=== PATIENT | female | born 1975 | race Caucasian/White ===

== ENCOUNTER → 2017-12-17 09:17 | Outpatient (CLI) | payer OTHER, SELFPAY ==
[2017-12-17 09:32] LABS: Add Manual Diff / Slide Review NO; Basophils Percent Auto 1.3 % (0-2); Eosinophils Percent Auto 13.6 % (2-4); Hematocrit 37.4 % (36-46); Hemoglobin 12.9 g/dL (12.0-16.0); Lymphocytes Percent Auto 36.9 % (25-40); Mean Corpuscular HGB Conc 34.4 % (30-36); Mean Corpuscular Hemoglobin 31.2 PG (26-34); Mean Corpuscular Volume 90.6 fL (80-100); Monocytes Percent Auto 6.9 % (3-14); Neutrophils Absolute Auto 2300 /uL (3000-5900); Neutrophils Percent Auto 41.3 % (50-75); Platelet Count 321 X10^3/uL (150-400); Red Blood Cell Count 4.12 X10^6/uL (4.0-5.2); Red Cell Distribution Width 13.6 % (11.6-14.8); White Blood Cell Count 5.6 X10^3/uL (4.5-11.0)
[2017-12-17 09:48] LABS: Alanine Aminotransferase 25 IU/L (9-52); Albumin Globulin Ratio 1.3 (1.0-2.8); Alkaline Phosphatase 58 U/L (38-126); Aspartate Aminotransferase 18 IU/L (14-36); Bilirubin Total 0.3 mg/dL (0.2-1.3); Blood Urea Nitrogen 14 mg/dL (7-17); Calcium 8.9 mg/dL (8.4-10.2); Carbon Dioxide 24 mmol/L (22-32); Chloride 104 mmol/L (98-107); Estimated Glomerular Filt Rate > 60.0 mL/min (>60); Globulin 3.2 g/dL (1.7-4.1); Glucose 91 mg/dL (70-100); HEMOLYSIS 15 (0-50); Potassium 4.3 mmol/L (3.4-5.1); Sodium 138 mmol/L (137-145); Total Protein 7.2 g/dL (6.3-8.2)
[2017-12-17 09:49] LABS: D Dimer 1662 ng/mL (<230)
== END ==
PROVIDERS: Family Provider Family Medicine; PCP Family Medicine; Visit Provider Nurse Practitioner Gerontology
DX: D68.59 Other primary thrombophilia (principal); Z86.11 Personal history of tuberculosis
CPT/HCPCS: 36415; 80053; 85025; 85379

== ENCOUNTER → 2018-06-13 10:28 | Outpatient (CLI) | payer OTHER, SELFPAY ==
--- NOTE | 2018-06-12 14:56 | ONC.SCHED ---
left voice mail for Ester Vila @ [facility] to fax new auth for this patient's [facility]
[2018-06-13 10:52] LABS: Add Manual Diff / Slide Review NO; Basophils Percent Auto 1.1 % (0-2); Eosinophils Percent Auto 9.6 % (2-4); Hematocrit 35.7 % (36-46); Hemoglobin 11.9 g/dL (12.0-16.0); Lymphocytes Percent Auto 34.7 % (25-40); Mean Corpuscular HGB Conc 33.4 % (30-36); Mean Corpuscular Hemoglobin 28.8 PG (26-34); Mean Corpuscular Volume 86.3 fL (80-100); Monocytes Percent Auto 7.2 % (3-14); Neutrophils Absolute Auto 2700 /uL (3000-5900); Neutrophils Percent Auto 47.4 % (50-75); Platelet Count 339 X10^3/uL (150-400); Red Blood Cell Count 4.14 X10^6/uL (4.0-5.2); Red Cell Distribution Width 16.8 % (11.6-14.8); White Blood Cell Count 5.6 X10^3/uL (4.5-11.0)
--- NOTE | 2018-06-13 16:13 | PC.NURSE ---
stable labs noted, provider visit on 06/17
== END ==
PROVIDERS: Family Provider Family Medicine; PCP Family Medicine; Visit Provider Nurse Practitioner Gerontology
DX: D68.69 Other thrombophilia (principal)
CPT/HCPCS: 36415; 85025

== ENCOUNTER 2020-04-25 13:17 | Emergency (ER) | payer OTHER, SELFPAY ==
[2020-04-25] VITALS (8 sets, daily range): BP systolic 147–175; BP diastolic 74–87; PULSE 64–72; RESP 15–23; TEMP 36.9; O2SAT 97–100; BMI 23.6
--- NOTE | 2020-04-25 13:46 | DI.RAD.S_ITS ---
PROCEDURE: XR CHEST 1V INDICATIONS: shortness of breath TECHNIQUE: One view of the chest was acquired. COMPARISON: [facility], , CHEST 1 VIEW, 08/23/2017, 9:29. FINDINGS: Surgical changes and devices: None. Lungs and pleura: Lungs are clear. No pleural effusions or pneumothorax. Mediastinum: Mediastinal contours appear normal. Heart size is normal. Bones and chest wall: No suspicious bony lesions. Overlying soft tissues appear unremarkable. IMPRESSION: 1. No acute cardiopulmonary disease. Dictated by: Vinicio Black M.D. on 04/25/2020 at 14:09 Approved by: Vinicio Black M.D. on 04/25/2020 at 14:09
[2020-04-25 14:09] LABS: Add Manual Diff / Slide Review NO; Basophils Absolute Auto 100 /uL (0-100); Basophils Percent Auto 1.2 % (0-2); Eosinophils Absolute Auto 200 /uL (0-450); Eosinophils Percent Auto 3.5 % (2-4); Hematocrit 36.8 % (36-46); Hemoglobin 12.2 g/dL (12.0-16.0); Lymphocytes Absolute Auto 2100 /uL (1100-4500); Lymphocytes Percent Auto 35.8 % (25-40); Mean Corpuscular HGB Conc 33.1 % (30-36); Mean Corpuscular Hemoglobin 29.4 PG (26-34); Mean Corpuscular Volume 88.9 fL (80-100); Monocytes Absolute Auto 500 /uL (0-900); Monocytes Percent Auto 7.8 % (3-14); Neutrophils Absolute Auto 3000 /uL (1500-7000); Neutrophils Percent Auto 51.7 % (50-75); Platelet Count 327 X10^3/uL (150-400); Red Blood Cell Count 4.14 X10^6/uL (4.0-5.2); Red Cell Distribution Width 14.6 % (11.6-14.8); White Blood Cell Count 5.8 X10^3/uL (4.5-11.0)
--- NOTE | 2020-04-25 14:14 | ED_ITS ---
HPI - SOB/Dyspnea General Chief Complaint: Shortness of Breath/Dyspnea Stated Complaint: thinks she has a PE Time Seen by Provider: 04/25/20 13:54 Source: patient Mode of arrival: Family Vehicle Limitations: no limitations History of Present Illness HPI Narrative: This is a 44-year-old female comes emergency department with concern for PE. Patient has history of pulmonary emboli about 8 years prior. 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 She does stop taking her Xarelto during her menses as she has very severe bleeding and then restart that as soon as her menses resolved. She stopped about a week and half and has since restarted. Patient states her prior symptoms were shortness of breath with dry cough and she noted that she had shortness of breath going up stairs. She states since then she has been a little bit of a hypochondriac states every time she has a cold she gets short of breath and is concerned about another pulmonary emboli. Patient has not had any fever she has had palpitation she had some chest pain at nighttime during palpitations the last 3 nights. Patient noted that her blood pressure was high which was last time as well. Patient has not any think she has had a mild headache the last 2 weeks, dry cough that is been nonproductive. She also noted again that she has short of breath going stairs and having to stop and catch her breath. Related Data Previous Rx's Medication Instructions Recorded rivaroxaban [Xarelto] 10 mg PO DAILY #90 tab 12/20/17 lisinopril 5 mg tablet 5 mg PO QDAY #90 tab 02/20/20 Allergies Allergy/AdvReac Type Severity Reaction Status Date / Time No Known Drug Allergies Allergy Verified 03/08/20 10:06 Review of Systems Review of Systems ROS Unobtainable: All systems reviewed & are unremarkable except as noted in HPI and below Patient History Medical History History of fibula fracture (Resolved ~2014) Protein S deficiency (Chronic) Pulmonary embolism (Chronic ~2011) Vaginal delivery (Resolved) Family History Brother Pulmonary embolism Family/Other Pulmonary embolism Father Colon polyps Mother Hypertension Thyroid disease Social History Smoking Status: Never smoker Smoking Status: Never smoker alcohol intake frequency: holidays/special occasions only Substance Use Type: does not use Exam Narrative Exam Narrative: GENERAL: Alert and oriented x three, well-nourished female in mild distress. HEENT: Head normocephalic, atraumatic, EOMI, pupils reactive, face symmetric, moist mucous membranes NECK: Supple, full range of motion CARDIOVASCULAR: Regular rate and rhythm without murmurs, rubs or gallops. RESPIRATORY: Breath sounds equal bilaterally, no wheezes rales or rhonchi. No tachypnea, no accessory muscle use. ABDOMEN: Soft, nontender. Normoactive bowel sounds all 4 quadrants. No guarding or rebound, rigidity, no mass : No CVA tenderness EXTREMITIES: Normal range of motion, no clubbing or edema. Calf are equal in circumference. No erythema or swelling noted. Neurovascularly intact NEUROLOGICAL: Cranial nerves II through XII grossly intact. Moving all extremities SKIN: Warm, dry, no petechiae, no rashes or lesions. Initial Vital Signs Initial Vital Signs: Vital Signs Temperature 98.4 F 04/25/20 13:30 Pulse Rate 66 04/25/20 13:30 Respiratory Rate 22 04/25/20 13:30 Blood Pressure 175/87 H 04/25/20 13:30 Pulse Oximetry 100 04/25/20 13:30 Scores PERC Score Age greater than or equal to 50 years: No Heart rate greater than or equal to 100 bpm: No Room Air O2 Sat less than 95%: No Unilateral leg swelling: No Recent trauma or surgery: No Hemoptysis: No Prior PE or DVT: Yes Hormone Use: No Total PERC Score: 1 Wells' Criteria for PE Clinical signs and symptoms of DVT: Yes PE is #1 Dx or equally likely: Yes Heart rate > 100: No Immobilization at least 3 days or surg in previous 4 weeks: No History of PE or DVT: Yes Hemoptysis: No Malignancy w/Treatment within 6 months or palliative: No Wells' PE Score total: 7.5 Course Orders Ordered: ED Orders 04/25/20 13:46 XR chest 1V Stat EKG-12 Lead Stat Measure peak expiratory flow ONCE RT Consult Eval and Treat Now 04/25/20 13:58 Complete Blood Count AUTO DIFF Stat Comprehensive Metabolic Panel Stat D Dimer Stat Lactate (Lactic Acid) Stat Partial Thromboplastin Time Stat Prothrombin Time INR Stat Troponin & CK Cardiac Panel Stat 04/25/20 14:25 CT angio chest PE protocol Stat 04/25/20 14:30 COVID19 -ED/INPAT/OR/L&D Stat Reevaluation(s) Reevaluation #1: Patient's labs show an elevated D-dimer but otherwise and troponin are normal. Patient's total creatinine kinase is 162. No EKG changes are noted. This was all discussed with the patient. CT PE does not show a pulmonary embolism at this time and patient is back on her Xarelto. Time: 15:44 Consultations Consultation #1: Spoke with Dr. Loredo who is covering for Dr. Blanchard today. Plan for follow up with office this week. Time: 15:38 Vital Signs Vital signs: Vital Signs - 8 hr 04/25/20 13:30 04/25/20 13:49 04/25/20 14:00 Temperature 98.4 F Pulse Rate 66 70 68 Respiratory Rate 22 20 20 Blood Pressure 175/87 H Pulse Oximetry 100 98 97 04/25/20 14:02 04/25/20 14:49 04/25/20 15:00 Temperature Pulse Rate 65 67 72 Respiratory Rate 20 15 Blood Pressure 159/83 H Pulse Oximetry 98 100 04/25/20 15:30 04/25/20 15:38 Temperature Pulse Rate 64 67 Respiratory Rate 23 18 Blood Pressure 147/74 H Pulse Oximetry 99 98 MDM - SOB/Dyspnea Lab Data Attestation: I reviewed the patient's lab results. Result diagrams: 04/25/20 13:58 04/25/20 13:58 Labs: Lab Results 04/25/20 04/25/20 04/25/20 Range/Units 13:58 13:58 13:58 WBC 5.8 (4.5-11.0) X10^3/uL RBC 4.14 (4.0-5.2) X10^6/uL Hgb 12.2 (12.0-16.0) g/dL Hct 36.8 (36-46) % MCV 88.9 (80-100) fL MCH 29.4 (26-34) PG MCHC 33.1 (30-36) % RDW 14.6 (11.6-14.8) % Plt Count 327 (150-400) X10^3/uL Neut % (Auto) 51.7 (50-75) % Lymph % (Auto) 35.8 (25-40) % [place] % (Auto) 7.8 (3-14) % Eos % (Auto) 3.5 (2-4) % Baso % (Auto) 1.2 (0-2) % Neut # (Auto) 3000 (5197-4728) /uL Lymph # (Auto) 2100 (2177-9880) /uL [place] # (Auto) 500 (0-900) /uL Eos # (Auto) 200 (0-450) /uL Baso # (Auto) 100 (0-100) /uL PT (10.1-12.7) SECONDS INR (0.9-1.3) APTT (26.4-36.2) SECONDS D-Dimer (<230) ng/mL Sodium 138 (137-145) mmol/L Potassium 4.0 (3.4-5.1) mmol/L Chloride 105 (98-107) mmol/L Carbon Dioxide 27 (22-32) mmol/L BUN 16 (7-17) mg/dL Creatinine 0.78 (0.52-1.04) mg/dL Estimated GFR > 60.0 (>60) mL/min BUN/Creatinine Ratio 20.5 (6-22) Glucose 84 (70-100) mg/dL Lactate 0.8 (0.7-2.1) mmol/L Calcium 8.8 (8.4-10.2) mg/dL Total Bilirubin 0.2 (0.2-1.3) mg/dL AST 23 (14-36) IU/L ALT 19 (<35) IU/L Alkaline Phosphatase 59 (38-126) U/L Total Creatine Kinase (30-135) U/L CK-MB (CK-2) (<2.37) ng/mL CK-MB (CK-2) Rel Index (1.5-5.0) % Troponin I (0.01-0.034) ng/mL Total Protein 7.0 (6.3-8.2) g/dL Albumin 3.9 (3.5-5.0) g/dL Globulin 3.1 (1.7-4.1) g/dL Albumin/Globulin Ratio 1.3 (1.0-2.8) COVID-19 PCR (Negative) 04/25/20 04/25/20 04/25/20 Range/Units 13:58 13:58 13:58 WBC (4.5-11.0) X10^3/uL RBC (4.0-5.2) X10^6/uL Hgb (12.0-16.0) g/dL Hct (36-46) % MCV (80-100) fL MCH (26-34) PG MCHC (30-36) % RDW (11.6-14.8) % Plt Count (150-400) X10^3/uL Neut % (Auto) (50-75) % Lymph % (Auto) (25-40) % [place] % (Auto) (3-14) % Eos % (Auto) (2-4) % Baso % (Auto) (0-2) % Neut # (Auto) (8358-5145) /uL Lymph # (Auto) (9238-5368) /uL [place] # (Auto) (0-900) /uL Eos # (Auto) (0-450) /uL Baso # (Auto) (0-100) /uL PT 11.6 (10.1-12.7) SECONDS INR 1.0 (0.9-1.3) APTT 32 (26.4-36.2) SECONDS D-Dimer 6529 H (<230) ng/mL Sodium (137-145) mmol/L Potassium (3.4-5.1) mmol/L Chloride (98-107) mmol/L Carbon Dioxide (22-32) mmol/L BUN (7-17) mg/dL Creatinine (0.52-1.04) mg/dL Estimated GFR (>60) mL/min BUN/Creatinine Ratio (6-22) Glucose (70-100) mg/dL Lactate (0.7-2.1) mmol/L Calcium (8.4-10.2) mg/dL Total Bilirubin (0.2-1.3) mg/dL AST (14-36) IU/L ALT (<35) IU/L Alkaline Phosphatase (38-126) U/L Total Creatine Kinase 162 H (30-135) U/L CK-MB (CK-2) 0.60 (<2.37) ng/mL CK-MB (CK-2) Rel Index 0.4 L (1.5-5.0) % Troponin I < 0.012 (0.01-0.034) ng/mL Total Protein (6.3-8.2) g/dL Albumin (3.5-5.0) g/dL Globulin (1.7-4.1) g/dL Albumin/Globulin Ratio (1.0-2.8) COVID-19 PCR (Negative) 04/25/20 Range/Units 14:30 WBC (4.5-11.0) X10^3/uL RBC (4.0-5.2) X10^6/uL Hgb (12.0-16.0) g/dL Hct (36-46) % MCV (80-100) fL MCH (26-34) PG MCHC (30-36) % RDW (11.6-14.8) % Plt Count (150-400) X10^3/uL Neut % (Auto) (50-75) % Lymph % (Auto) (25-40) % [place] % (Auto) (3-14) % Eos % (Auto) (2-4) % Baso % (Auto) (0-2) % Neut # (Auto) (3182-9875) /uL Lymph # (Auto) (8943-8697) /uL [place] # (Auto) (0-900) /uL Eos # (Auto) (0-450) /uL Baso # (Auto) (0-100) /uL PT (10.1-12.7) SECONDS INR (0.9-1.3) APTT (26.4-36.2) SECONDS D-Dimer (<230) ng/mL Sodium (137-145) mmol/L Potassium (3.4-5.1) mmol/L Chloride (98-107) mmol/L Carbon Dioxide (22-32) mmol/L BUN (7-17) mg/dL Creatinine (0.52-1.04) mg/dL Estimated GFR (>60) mL/min BUN/Creatinine Ratio (6-22) Glucose (70-100) mg/dL Lactate (0.7-2.1) mmol/L Calcium (8.4-10.2) mg/dL Total Bilirubin (0.2-1.3) mg/dL AST (14-36) IU/L ALT (<35) IU/L Alkaline Phosphatase (38-126) U/L Total Creatine Kinase (30-135) U/L CK-MB (CK-2) (<2.37) ng/mL CK-MB (CK-2) Rel Index (1.5-5.0) % Troponin I (0.01-0.034) ng/mL Total Protein (6.3-8.2) g/dL Albumin (3.5-5.0) g/dL Globulin (1.7-4.1) g/dL Albumin/Globulin Ratio (1.0-2.8) COVID-19 PCR Negative (Negative) ECG Data Attestation: I personally reviewed and interpreted this ECG as follows: Prior ECG tracings: available for review Interpretation: Sinus rhythm short p.r., rate of 64 with P are interval a 92 QRS of [address] elevation appreciated depression. Patient does not have S1 Q 3 T3 noted. MDM Narrative Medical decision making narrative: Patient has a history of pulmonary emboli with a genetic mutation predisposing her. She does not take her Xarelto consistently secondary to excessive bleeding during her menses. Discharge Plan Departure Patient Disposition: Home Clinical Impression: Dyspnea Qualifiers: Dyspnea type: shortness of breath Qualified Code(s): R06.02 - Shortness of breath Discharge Date/Time: 04/25/20 15:56 Instructions: DI for Shortness of Breath Activity Restrictions/Additional Instructions: Follow-up with Dr. Blanchard or one of your partners if she is not available this week. Continue your Xarelto as prescribed at this time. Also discussed whether he should be restarted on your lisinopril. Blood pressure was slightly elevated today in the emergency department. Your imaging does not show any signs of pulmonary emboli at this time, your D- dimer is quite elevated today. If you develop worsening shortness of breath or pain in your extremities or swelling please return to the ER for further evaluation. Prescriptions: No Action lisinopril 5 mg tablet 5 mg PO QDAY Qty: 90 RF: 0 Xarelto 10 mg Tablet 10 mg PO DAILY Qty: 90 RF: 0 Referrals: Marry Blanchard DO [Primary Care Provider] -
[2020-04-25 14:20] LABS: Alanine Aminotransferase 19 IU/L (<35); Albumin 3.9 g/dL (3.5-5.0); Albumin Globulin Ratio 1.3 (1.0-2.8); Alkaline Phosphatase 59 U/L (38-126); Aspartate Aminotransferase 23 IU/L (14-36); BUN Creatinine Ratio 20.5 (6-22); Bilirubin Total 0.2 mg/dL (0.2-1.3); Blood Urea Nitrogen 16 mg/dL (7-17); Calcium 8.8 mg/dL (8.4-10.2); Carbon Dioxide 27 mmol/L (22-32); Chloride 105 mmol/L (98-107); Estimated Glomerular Filt Rate > 60.0 mL/min (>60); Globulin 3.1 g/dL (1.7-4.1); Glucose 84 mg/dL (70-100); HEMOLYSIS < 15 (0-50); Sodium 138 mmol/L (137-145)
[2020-04-25 14:21] LABS: Lactate (Lactic Acid) 0.8 mmol/L (0.7-2.1)
[2020-04-25 14:23] LABS: Prothrombin Time 11.6 SECONDS (10.1-12.7)
--- NOTE | 2020-04-25 14:25 | DI.CT.S_ITS ---
PROCEDURE: CT ANGIO CHEST PE PROTOCOL INDICATIONS: sob, hx of PE w/ genetic mutation, similar symptoms. TECHNIQUE: After the administration of intravenous contrast, 2 mm thick sections acquired from the pulmonary apices to the posterior costophrenic angles. 3-dimensional maximum intensity projection (MIP) coronal and sagittal reformats were then acquired through the thorax. For radiation dose reduction, the following was used: automated exposure control, adjustment of mA and/or kV according to patient size. COMPARISON: [facility], CT, PE STUDY (CTA CHEST), 08/05/2014, 19:24. [facility], CT, PE STUDY (CTA CHEST), 08/23/2017, 10:49. FINDINGS: Image quality: Excellent. Pulmonary arteries: Pulmonary arteries are normal in size, and demonstrate no intraluminal filling defects to suggest central pulmonary embolism. Lungs and pleura: There is dependent atelectasis bilaterally. A small pulmonary nodule within the right lower lobe on series 5, image 120 measuring approximately 3 mm is stable in size compared to the prior studies given differences in technique. No pleural effusions or pneumothorax. Central and peripheral airways are patent. Mediastinum: Heart size is normal, without pericardial effusion. There is residual thymus within the anterior mediastinum. No mediastinal or hilar adenopathy. Thoracic aorta is normal in caliber and enhancement. Esophagus is normal in caliber, without hiatal hernia. Bones and chest wall: No suspicious bony lesions. Ribs and thoracic spine appear intact throughout. Thyroid gland demonstrates a small hypoattenuating nodule within the right lobe measuring 0.4 cm. No axillary or supraclavicular adenopathy. Abdomen: Visualized upper abdomen demonstrates a lobulated hypoattenuating lesion within the left hepatic lobe measuring up to 2.7 by 1.8 cm with an eccentric focus of peripheral enhancement. This appears similar to the prior studies but is incompletely characterized. Findings are suggestive of a hemangioma. IMPRESSION: 1. No evidence of pulmonary embolism. 2. Hypoattenuating lesion within the right hepatic lobe is incompletely characterized but appears similar to the prior studies. Findings are suggestive of a hemangioma. If clinically indicated, follow-up evaluation may be obtained with a liver protocol MRI. Dictated by: Vinicio Black M.D. on 04/25/2020 at 13:58 Approved by: Vinicio Black M.D. on 04/25/2020 at 14:09
[2020-04-25 14:26] LABS: PTT Partial Thromboplastin Tim 32 SECONDS (26.4-36.2)
[2020-04-25 14:37] LABS: Creatine Kinase 162 U/L (30-135)
[2020-04-25 14:47] LABS: D Dimer 6529 ng/mL (<230)
[2020-04-25 14:50] LABS: Troponin I < 0.012 ng/mL (0.01-0.034)
[2020-04-25 14:53] LABS: CKMB % Relative Index 0.4 % (1.5-5.0)
[2020-04-25 15:20] LABS: COVID19 -Nasal RAPID Negative (Negative)
== END 2020-04-25 15:56 | disposition home or self-care (01) ==
PROVIDERS: Emergency Provider Emergency Medicine; Family Provider Family Medicine; PCP Family Medicine
DX: R06.02 Shortness of breath (principal); Z86.711 Personal history of pulmonary embolism; Z79.01 Long term (current) use of anticoagulants
CPT/HCPCS: 36415; 71045; 71275; 80053; 82550; 82553; 83605; 84484; 85025; 85379; 85610; 85730; 87635; 93005; 99284; Q9967

== ENCOUNTER → 2020-05-03 09:59 | Outpatient (CLI) | payer OTHER, SELFPAY ==
[2020-05-04 06:52] LABS: COVID19 Sendout Not Detected (Not Detect)
== END ==
PROVIDERS: Family Provider Family Medicine; PCP Family Medicine; Visit Provider Physician Assistant
DX: Z01.812 Encounter for preprocedural laboratory examination (principal)
CPT/HCPCS: 87635

== ENCOUNTER → 2020-05-06 12:46 | Outpatient (CLI) | payer OTHER, SELFPAY ==
--- NOTE | 2020-05-14 17:21 | PM.PFT.1 ---
Pulmonary Function Test Referral & Results Date Patient Seen: 05/06/20 Requesting provider: Marry Blanchard Indication: Asthma Results: The spirometry demonstrates an FVC of 4.12 L which is 113% of predicted. The FEV1 was measured at 2.88 L which is 97% of predicted. The FEV1/FVC ratio was 70 which is 85% of predicted. Following the administration of bronchodilator there was an 11% improvement in FEV1 and a 40% improvement in FEF 25-75%. Lung volumes show an SVC of 3.51 L which is 103% of predicted. The diffusing capacity was measured at 26.40 which is 108% of predicted. The maximum voluntary ventilation was normal Interpretation: This study demonstrates normal pulmonary function
== END ==
PROVIDERS: Family Provider Family Medicine; PCP Family Medicine; Referring Provider Family Medicine; Visit Provider Family Medicine
DX: J45.909 Unspecified asthma, uncomplicated (principal); Z86.711 Personal history of pulmonary embolism
CPT/HCPCS: 94060; 94726; 94729

== ENCOUNTER → 2020-06-02 13:33 | Outpatient (CLI) | payer OTHER, SELFPAY ==
--- NOTE | 2020-06-23 10:54 | P.HOLT.S_ITS ---
Compensation Agent Report Referral & Results Date Patient Seen: 06/02/20 Requesting provider: Marry Blanchard Indication: Palpitations Duration of monitoring (days): 7 Diary information: There was 6 patient triggered events and 5 patient diary entries. These 11 events were associated variably with sinus rhythm and PVCs Data: Minimum heart rate identified was 49 beats per minute at 07:27 on 06/07/2020 Maximum heart rate was 162 beats per minute at 09:18 on 06/07/2020 Less than 1% of identified beats or either ventricular supraventricular ectopic in origin There were 2 runs of SVT the fastest being 5 beats at a rate of 146 beats per minute with the longest also being 5 beats. Some of these episodes may well be atrial tachycardia rather than true SVT. 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
== END ==
PROVIDERS: Family Provider Family Medicine; PCP Family Medicine; Referring Provider Family Medicine; Visit Provider Family Medicine
DX: R00.2 Palpitations (principal)
CPT/HCPCS: 0296T; 0298T

== ENCOUNTER → 2020-10-14 10:00 | Outpatient (CLI) | payer OTHER, SELFPAY ==
[2020-10-14] MEDS: COVID-19 VACC #1, MRNA(MOD) 100 MCG/0.5 ML VIAL IM (10:11)
== END ==
PROVIDERS: Family Provider Family Medicine; PCP Family Medicine; Visit Provider Internal Medicine
DX: Z23 Encounter for immunization (principal)
CPT/HCPCS: 0011A; 91301

== ENCOUNTER → 2020-11-11 09:57 | Outpatient (CLI) | payer OTHER, SELFPAY ==
[2020-11-11] MEDS: COVID-19 VACC #2, MRNA(MOD) 100 MCG/0.5 ML VIAL IM (10:02)
== END ==
PROVIDERS: Visit Provider Internal Medicine
DX: Z23 Encounter for immunization (principal)
CPT/HCPCS: 0012A; 91301

== ENCOUNTER → 2020-12-06 10:57 | Outpatient (CLI) | payer OTHER, SELFPAY ==
[2020-12-06 12:22] LABS: Add Manual Diff / Slide Review NO; Basophils Absolute Auto 100 /uL (0-100); Basophils Percent Auto 1.2 % (0-2); Eosinophils Absolute Auto 100 /uL (0-450); Eosinophils Percent Auto 2.7 % (2-4); Hematocrit 36.9 % (36-46); Hemoglobin 12.1 g/dL (12.0-16.0); Lymphocytes Absolute Auto 1800 /uL (1100-4500); Lymphocytes Percent Auto 35.8 % (25-40); Mean Corpuscular HGB Conc 32.9 % (30-36); Mean Corpuscular Hemoglobin 27.9 PG (26-34); Mean Corpuscular Volume 84.7 fL (80-100); Monocytes Absolute Auto 400 /uL (0-900); Neutrophils Absolute Auto 2700 /uL (1500-7000); Neutrophils Percent Auto 53.3 % (50-75); Platelet Count 334 X10^3/uL (150-400); Red Blood Cell Count 4.35 X10^6/uL (4.0-5.2); Red Cell Distribution Width 17.4 % (11.6-14.8); White Blood Cell Count 5.1 X10^3/uL (4.5-11.0)
[2020-12-06 13:00] LABS: Alanine Aminotransferase 20 IU/L (<35); Albumin 3.9 g/dL (3.5-5.0); Albumin Globulin Ratio 1.3 (1.0-2.8); Alkaline Phosphatase 77 U/L (38-126); Aspartate Aminotransferase 23 IU/L (14-36); Bilirubin Total 0.2 mg/dL (0.2-1.3); Blood Urea Nitrogen 15 mg/dL (7-17); Calcium 9.7 mg/dL (8.4-10.2); Carbon Dioxide 28 mmol/L (22-32); Chloride 103 mmol/L (98-107); Estimated Glomerular Filt Rate > 60.0 mL/min (>60); Globulin 3.1 g/dL (1.7-4.1); Glucose 88 mg/dL (70-100); HEMOLYSIS < 15 (0-50); Potassium 4.9 mmol/L (3.4-5.1); Sodium 137 mmol/L (137-145)
[2020-12-06 13:31] LABS: TSH w/ Reflex to FT4 0.76 uIU/mL (0.47-4.68)
== END ==
PROVIDERS: Family Provider Family Medicine; PCP Family Medicine; Referring Provider Family Medicine; Visit Provider Family Medicine
DX: N92.0 Excessive and frequent menstruation with regular cycle (principal)
CPT/HCPCS: 36415; 80053; 84443; 85025

== ENCOUNTER 2020-12-06 23:47 | Emergency (ER) | payer OTHER, SELFPAY ==
[2020-12-06 23:53] VITALS: BP 138/74; PULSE 71; RESP 24; O2SAT 96
[2020-12-07 00:18] VITALS: BMI 23.3
[2020-12-07 00:56] VITALS: BP 134/76; PULSE 85; RESP 14; O2SAT 98
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
== END 2020-12-07 01:14 | disposition home or self-care (01) ==
PROVIDERS: Emergency Provider Emergency Medicine; Family Provider Family Medicine; PCP Family Medicine
DX: F41.9 Anxiety disorder, unspecified (principal); T50.905A Adverse effect of unspecified drugs, medicaments and biological substances, initial encounter
CPT/HCPCS: 99281; 99283

== ENCOUNTER → 2021-02-04 12:10 | Outpatient (CLI) | payer OTHER, SELFPAY ==
--- NOTE | 2021-02-04 12:11 | DI.US.S_ITS ---
PROCEDURE: US PELVIC COMPLETE INDICATIONS: MENNORAGIA TECHNIQUE: Real-time scanning was performed of the pelvic organs, with image documentation. Additional endovaginal scanning was necessary due to incomplete visualization of the adnexal and endometrial structures by transabdominal scanning. COMPARISON: None. FINDINGS: Uterus: Uterus is normal in size at 10.5 x 6.0 x 7.2 cm. The endometrium measures 17.2 mm in combined thickness. Probable submucosal fibroid measuring 4.4 x 3.7 x 3.5 cm and there is a sub cm intramural fibroid. Ovaries: Regressing physiologic cyst associated with the left ovary measuring 1.4 cm. Right ovary is normal. Other: No pathologic free abdominal or pelvic fluid. IMPRESSION: 1. Prominence of the endometrial complex and presumed submucosal fibroid measuring up to 4.4 cm and there is a sub cm posterior intramural fibroid also seen. If indicated, pre and post contrast gynecologic protocol MRI could be performed for further assessment. 2. Regressing physiologic left ovarian cyst. Dictated by: Hank Ybarra [facility] Interpreted: Mark Pablo MD on 02/04/2021 at 13:00 Transcribed by: SELWYN on 02/04/2021 at 13:02 Approved by: Canelo Pablo M.D. on 02/08/2021 at 11:25
== END ==
PROVIDERS: Family Provider Family Medicine; PCP Family Medicine; Referring Provider Family Medicine; Visit Provider Family Medicine
DX: N92.0 Excessive and frequent menstruation with regular cycle (principal); N83.202 Unspecified ovarian cyst, left side
CPT/HCPCS: 76830; 76856

== ENCOUNTER 2021-08-31 08:20 | Emergency (ER) | payer OTHER, SELFPAY ==
[2021-08-31] VITALS (8 sets, daily range): BP systolic 113–147; BP diastolic 60–82; PULSE 60–75; RESP 12–19; TEMP 36.6; O2SAT 98–100
--- NOTE | 2021-08-31 08:51 | ED.CHESTPAIN ---
HPI - Chest Pain General Chief Complaint: Chest Pain Stated Complaint: Chest pain- hx of embolism Time Seen by Provider: 08/31/21 08:24 Source: patient Mode of arrival: Ambulatory Limitations: no limitations History of Present Illness HPI narrative: 45F nonsmoker with a history of a clotting disorder and a prior pulmonary embolism about 10 years ago presents with a chief complaint of multiple symptoms that have been bothering her for the past few days including sharp and stabbing anterior chest pain that radiates to her back. This pain is moderate in intensity and seems to be worsened with motion and deep breath. She does admit that she has been increasingly short of breath with exertion. She has had a dry and hacking cough but denies any hemoptysis. She has been on Xarelto for quite a few years and denies missing any doses. She denies any recent trauma or injury. She has had no fever or chills. She denies nausea, vomiting or diarrhea. She denies any lower extremity pain or swelling Related Data Previous Rx's Medication Instructions Recorded rivaroxaban 10 mg tablet (Xarelto) 10 mg PO DAILY #90 tab 09/23/20 apixaban 5 mg (74 tabs) tablets in 5 mg PO BID #74 ea 08/31/21 a dose pack (Eliquis DVT-PE Treat 30D Start) Allergies Allergy/AdvReac Type Severity Reaction Status Date / Time No Known Drug Allergies Allergy Verified 03/29/21 08:53 Review of Systems Review of Systems Narrative: GENERAL: See HPI. HEENT: Denies sinus pain, ear pain, sore throat, difficulty swallowing, dizziness. RESPIRATORY: See HPI CARDIOVASCULAR: See HPI GASTROINTESTINAL: Denies nausea, vomiting, abdominal pain, diarrhea, constipation, melena. : Denies dysuria, frequency, incontinence, hematuria, urinary retention. MUSCULOSKELETAL: denies weakness, joint pain, or bony pain SKIN: Denies rash, skin lesions, or other NEUROLOGIC: Denies weakness, headache, numbness, change in speech, confusion, seizures, incoordination. PSYCHIATRIC: No concerning psychosocial issues. 12 point review of systems is negative except for those stated above Patient History Medical History (Updated 08/31/21 @ 10:51 by Tarun Salmon DO) History of fibula fracture (~2014) Protein S deficiency Pulmonary embolism (~2011) Vaginal delivery Family History Brother Pulmonary embolism Family/Other Pulmonary embolism Father Colon polyps Mother Hypertension Thyroid disease Social History Smoking Status: Never smoker Smoking Status: Never smoker alcohol intake frequency: holidays/special occasions only Substance Use Type: does not use Exam Narrative Exam Narrative: GENERAL: [45] year old patient appears stated age. Well-developed patient, in mild distress. HEAD: Atraumatic. Normocephalic. EYES: Pupils equal round and reactive. Extraocular motions intact. No scleral icterus. No injection or drainage. ENT: Nose without bleeding, purulent drainage. Throat without erythema, tonsillar hypertrophy or exudate. Airway patent. NECK: Trachea midline. Non tender CARDIOVASCULAR: Regular rate and rhythm without murmurs, gallops, or rubs. RESPIRATORY: Clear to auscultation. Breath sounds equal bilaterally. No wheezes, rales, or rhonchi. GASTROINTESTINAL: Abdomen soft, non-tender, nondistended. EXTREMITIES: No edema or joint tenderness. BACK: Nontender without deformity or crepitance. No flank tenderness. NEURO: AOx3. SKIN: No rash or erythema of visible areas Initial Vital Signs Initial Vital Signs: Vital Signs Temperature 97.8 F 08/31/21 08:39 Pulse Rate 71 08/31/21 08:39 Respiratory Rate 18 08/31/21 08:39 Blood Pressure 143/82 H 08/31/21 08:39 Pulse Oximetry 98 08/31/21 08:39 Course Orders Ordered: ED Orders 08/31/21 08:50 Complete Blood Count AUTO DIFF Stat Comprehensive Metabolic Panel Stat Lipase Stat NT-proBNP (BNP-Adult 18+) Stat Troponin & CK Cardiac Panel Stat 08/31/21 09:12 CT angio chest PE protocol Stat Sodium Chloride (Normal Saline 0.9%) 1,000 mls @ 150 mls/hr IV CONT CHUY Last Admin: 08/31/21 09:42 Dose: 150 mls/hr Documented by: BTONER Discontinued Medications Apixaban (Apixaban 5 Mg Tablet) 10 mg PO NOW ONE Stop: 08/31/21 10:44 Aspirin (Aspirin 81 Mg Chew Tab) 324 mg PO NOW ONE Stop: 08/31/21 08:47 Last Admin: 02/16/22 09:43 Dose: Not Given Documented by: CARMEN Consultations Consultation #1: Discussed with on-call Hematology, they do not necessarily consider this a failure of Xarelto, just under dosed but do recommend switching to treatment dosed Eliquis Vital Signs Vital signs: Vital Signs - 8 hr 08/31/21 08:39 Temperature 97.8 F Pulse Rate 71 Respiratory Rate 18 Blood Pressure 143/82 H Pulse Oximetry 98 MDM - Chest Pain Lab Data Result diagrams: 08/31/21 08:50 08/31/21 08:50 Labs: Lab Results 08/31/21 08/31/21 Range/Units 08:50 08:50 WBC 5.1 (4.5-11.0) X10^3/uL RBC 3.95 L (4.0-5.2) X10^6/uL Hgb 9.6 L (12.0-16.0) g/dL Hct 30.0 L (36-46) % MCV 75.9 L (80-100) fL MCH 24.4 L (26-34) PG MCHC 32.1 (30-36) % RDW 16.2 H (11.6-14.8) % Plt Count 404 H (150-400) X10^3/uL Neut % (Auto) 55.7 (50-75) % Lymph % (Auto) 32.1 (25-40) % Barrow % (Auto) 7.2 (3-14) % Eos % (Auto) 3.4 (2-4) % Baso % (Auto) 1.6 (0-2) % Neut # (Auto) 2800 (2215-8381) /uL Lymph # (Auto) 1600 (8538-8457) /uL Barrow # (Auto) 400 (0-900) /uL Eos # (Auto) 200 (0-450) /uL Baso # (Auto) 100 (0-100) /uL Sodium 135 L (137-145) mmol/L Potassium 4.0 (3.4-5.1) mmol/L Chloride 106 (98-107) mmol/L Carbon Dioxide 28 (22-32) mmol/L BUN 12 (7-17) mg/dL Creatinine 0.71 (0.52-1.04) mg/dL Estimated GFR > 60.0 (>60) mL/min BUN/Creatinine Ratio 16.9 (6-22) Glucose 91 (70-100) mg/dL Calcium 8.8 (8.4-10.2) mg/dL Total Bilirubin 0.4 (0.2-1.3) mg/dL AST 24 (14-36) IU/L ALT 22 (<35) IU/L Alkaline Phosphatase 50 (38-126) U/L Total Creatine Kinase 54 (30-135) U/L CK-MB (CK-2) TNP CK-MB (CK-2) Rel Index TNP Troponin I < 0.012 (0.01-0.034) ng/mL NT-Pro-B Natriuret Pep 61 (<125) pg/mL Total Protein 7.0 (6.3-8.2) g/dL Albumin 3.9 (3.5-5.0) g/dL Globulin 3.1 (1.7-4.1) g/dL Albumin/Globulin Ratio 1.3 (1.0-2.8) Lipase 44 (23-300) U/L Point of Care Testing Test Results Negative Imaging Data CT scan - chest: Radiologist's Impression: [place] [address] CT Scan Report Signed Patient: Immanuel Murray MR#: [id number] : 1975 Acct:[id number] Age/Sex: 45 / F Date of Service: 08/31/21 Loc: ED Accession Number: [id number] ?? Procedure: CT angio chest PE protocol Ordering Provider: Tarun Salmon D.O. PROCEDURE:? CT ANGIO CHEST PE PROTOCOL ? INDICATIONS:? SOB, chest pain, dry cough, worse with deep breath ? TECHNIQUE:? After the administration of intravenous contrast, 2 mm thick sections acquired from the pulmonary apices to the posterior costophrenic angles.? 3-dimensional maximum intensity projection (MIP) coronal and sagittal reformats were then acquired through the thorax.? For radiation dose reduction, the following was used:? automated exposure control, adjustment of mA and/or kV according to patient size.? ? COMPARISON:? [facility], CT, CT ANGIO CHEST PE PROTOCOL, 04/25/2020, 14:31. ? FINDINGS:? Image quality:? Excellent.? ? Pulmonary arteries:? Small pulmonary emboli noted in posterior right lower lobe segmental and subsegmental pulmonary arteries.? ? Lungs and pleura:? Lungs are clear.? 5 millimeter mikaela fissural lymph node noted in the right middle lobe (series 5, image 143) which is stable compared to the prior exam..? No pleural effusions or pneumothorax.? Central and peripheral airways are patent.? ? Mediastinum:? Heart size is normal, without pericardial effusion.? No mediastinal or hilar adenopathy.? Thoracic aorta is normal in caliber and enhancement.? Esophagus is normal in caliber, without hiatal hernia.? ? Bones and chest wall:? No suspicious bony lesions.? Ribs and thoracic spine appear intact throughout.? 4 millimeter hypoattenuating nodule in the right thyroid lobe is stable.? No axillary or supraclavicular adenopathy.? ? Abdomen:? Visualized upper abdominal solid organs appear normal in the early arterial phase of enhancement.? ? ? IMPRESSION:? ? 1. Small pulmonary emboli involving right lower lobe segmental and subsegmental pulmonary arteries.? ? 2. No lung consolidation or pleural effusions.? Dictated by: Poppy Skinner MD, PhD on 08/31/2021 at 9:19 ? ? Approved by: Poppy Skinner MD, PhD on 08/31/2021 at 9:53 ? ECG Data Interpretation: EKG is normal sinus rhythm rate [65 ] and free of any signs of ischemia or ectopy. No ST segmental elevation or depression. No T wave inversions Discharge Plan Departure Patient Disposition: Home Clinical Impression: Pulmonary embolism Instructions: DI for Pulmonary Embolism Activity Restrictions/Additional Instructions: *You have been diagnosed with [recurrence of pulmonary embolism *What to do: *Please stop your Xarelto [x ] New medication prescriptions sent to your pharmacy: [[facility]] [ ] New medication written as a paper prescription [ ] No new medications given *Please follow up with your primary care provider in 2-3 days, call for an appointment. Let them know you were seen in the Emergency Department and that we ask that you be seen in follow up. We will electronically transmit a record of today's note if your PCP is in our system *If you do not have a primary care provider please contact the [facility] Resource line at [phone]. They will ask some questions about your medical history and help get you set up with a doctor in the community. *Return to Emergency Department if you should have any new, worsening or concerning symptoms, such as [fever greater than 101 F, shaking chills, worsening pain, persistent vomiting or other bothersome symptoms] Prescriptions: [place] DVT-PE Treat 30D Start 5 mg (74 tabs) tablets,dose pack 5 mg PO BID Qty: 74 0RF No Action Xarelto 10 mg tablet 10 mg PO DAILY Qty: 90 3RF Referrals: Marry Blanchard DO [Primary Care Provider] -
[2021-08-31 09:05] LABS: Add Manual Diff / Slide Review NO; Basophils Absolute Auto 100 /uL (0-100); Basophils Percent Auto 1.6 % (0-2); Eosinophils Absolute Auto 200 /uL (0-450); Eosinophils Percent Auto 3.4 % (2-4); Hemoglobin 9.6 g/dL (12.0-16.0); Lymphocytes Absolute Auto 1600 /uL (1100-4500); Lymphocytes Percent Auto 32.1 % (25-40); Mean Corpuscular HGB Conc 32.1 % (30-36); Mean Corpuscular Hemoglobin 24.4 PG (26-34); Mean Corpuscular Volume 75.9 fL (80-100); Monocytes Absolute Auto 400 /uL (0-900); Monocytes Percent Auto 7.2 % (3-14); Neutrophils Absolute Auto 2800 /uL (1500-7000); Neutrophils Percent Auto 55.7 % (50-75); Platelet Count 404 X10^3/uL (150-400); Red Blood Cell Count 3.95 X10^6/uL (4.0-5.2); Red Cell Distribution Width 16.2 % (11.6-14.8); White Blood Cell Count 5.1 X10^3/uL (4.5-11.0)
--- NOTE | 2021-08-31 09:12 | DI.CT.S_ITS ---
PROCEDURE: CT ANGIO CHEST PE PROTOCOL INDICATIONS: SOB, chest pain, dry cough, worse with deep breath TECHNIQUE: After the administration of intravenous contrast, 2 mm thick sections acquired from the pulmonary apices to the posterior costophrenic angles. 3-dimensional maximum intensity projection (MIP) coronal and sagittal reformats were then acquired through the thorax. For radiation dose reduction, the following was used: automated exposure control, adjustment of mA and/or kV according to patient size. COMPARISON: [facility], CT, CT ANGIO CHEST PE PROTOCOL, 04/25/2020, 14:31. FINDINGS: Image quality: Excellent. Pulmonary arteries: Small pulmonary emboli noted in posterior right lower lobe segmental and subsegmental pulmonary arteries. Lungs and pleura: Lungs are clear. 5 millimeter mikaela fissural lymph node noted in the right middle lobe (series 5, image 143) which is stable compared to the prior exam.. No pleural effusions or pneumothorax. Central and peripheral airways are patent. Mediastinum: Heart size is normal, without pericardial effusion. No mediastinal or hilar adenopathy. Thoracic aorta is normal in caliber and enhancement. Esophagus is normal in caliber, without hiatal hernia. Bones and chest wall: No suspicious bony lesions. Ribs and thoracic spine appear intact throughout. 4 millimeter hypoattenuating nodule in the right thyroid lobe is stable. No axillary or supraclavicular adenopathy. Abdomen: Visualized upper abdominal solid organs appear normal in the early arterial phase of enhancement. IMPRESSION: 1. Small pulmonary emboli involving right lower lobe segmental and subsegmental pulmonary arteries. 2. No lung consolidation or pleural effusions. Dictated by: Poppy Skinner MD, PhD on 08/31/2021 at 9:19 Approved by: Poppy Skinner MD, PhD on 08/31/2021 at 9:53
[2021-08-31 09:15] LABS: Alanine Aminotransferase 22 IU/L (<35); Albumin 3.9 g/dL (3.5-5.0); Albumin Globulin Ratio 1.3 (1.0-2.8); Alkaline Phosphatase 50 U/L (38-126); Aspartate Aminotransferase 24 IU/L (14-36); BUN Creatinine Ratio 16.9 (6-22); Bilirubin Total 0.4 mg/dL (0.2-1.3); Blood Urea Nitrogen 12 mg/dL (7-17); Calcium 8.8 mg/dL (8.4-10.2); Carbon Dioxide 28 mmol/L (22-32); Chloride 106 mmol/L (98-107); Creatine Kinase 54 U/L (30-135); Estimated Glomerular Filt Rate > 60.0 mL/min (>60); Globulin 3.1 g/dL (1.7-4.1); Glucose 91 mg/dL (70-100); HEMOLYSIS < 15 (0-50); Lipase 44 U/L (23-300); Sodium 135 mmol/L (137-145)
[2021-08-31 09:26] LABS: NT-proBNP (BNP-Adult 18+) 61 pg/mL (<125); Troponin I < 0.012 ng/mL (0.01-0.034)
[2021-08-31] MEDS: SODIUM CHLORIDE 0.9% 1,000 ML 150 ML IV (09:42)
[2021-08-31] MEDS: APIXABAN 5 MG TABLET 10 MG PO (11:14)
== END 2021-08-31 11:21 | disposition home or self-care (01) ==
PROVIDERS: Emergency Provider Emergency Medicine; Family Provider Family Medicine; PCP Family Medicine
DX: I26.99 Other pulmonary embolism without acute cor pulmonale (principal); Z79.01 Long term (current) use of anticoagulants
CPT/HCPCS: 36415; 71275; 80053; 81025; 82550; 83690; 83880; 84484; 85025; 93005; 93010; 96360; 96361; 99284

== ENCOUNTER → 2022-03-27 12:28 | Outpatient (CLI) | payer OTHER, SELFPAY ==
[2022-03-27 13:58] LABS: Basophils Absolute Auto 100 /uL (0-100); Basophils Percent Auto 1.4 % (0-2); Eosinophils Absolute Auto 100 /uL (0-450); Eosinophils Percent Auto 1.5 % (2-4); Lymphocytes Absolute Auto 2100 /uL (1100-4500); Lymphocytes Percent Auto 40.4 % (25-40); Mean Corpuscular HGB Conc 29.4 % (30-36); Mean Corpuscular Hemoglobin 17.2 PG (26-34); Mean Corpuscular Volume 58.3 fL (80-100); Monocytes Absolute Auto 300 /uL (0-900); Monocytes Percent Auto 6.5 % (3-14); Neutrophils Absolute Auto 2600 /uL (1500-7000); Neutrophils Percent Auto 50.2 % (50-75); Platelet Count 416 X10^3/uL (150-400); Red Blood Cell Count 3.94 X10^6/uL (4.0-5.2); Red Cell Distribution Width 19.1 % (11.6-14.8); White Blood Cell Count 5.2 X10^3/uL (4.5-11.0)
--- NOTE | 2022-03-27 14:15 | DI.RAD.S_ITS ---
PROCEDURE: XR CHEST 2V INDICATIONS: Shortness of breath post COVID TECHNIQUE: 2 views of the chest were acquired. COMPARISON: [facility], NICOLE, XR CHEST 1V, 04/25/2020, 14:32. [facility], NICOLE, CHEST 1 VIEW, 08/23/2017, 9:29. FINDINGS: Surgical changes and devices: None. Lungs and pleura: Lungs are clear. No pleural effusions or pneumothorax. Mediastinum: Mediastinal contours are normal. Heart size is normal. Bones and chest wall: No suspicious bony abnormalities. Soft tissues appear unremarkable. IMPRESSION: No acute cardiopulmonary abnormality. Dictated by: Chidi Wolff M.D. on 03/27/2022 at 20:08 Approved by: Chidi Wolff M.D. on 03/27/2022 at 20:10
[2022-03-27 14:32] LABS: Add Manual Diff / Slide Review SLIDE REVIEW; Hemoglobin 6.8 g/dL (12.0-16.0)
[2022-03-27 14:46] LABS: Alanine Aminotransferase 12 IU/L (<35); Albumin Globulin Ratio 1.2 (1.0-2.8); Alkaline Phosphatase 57 U/L (38-126); Aspartate Aminotransferase 16 IU/L (14-36); BUN Creatinine Ratio 17.6 (6-22); Bilirubin Total 0.3 mg/dL (0.2-1.3); Blood Urea Nitrogen 15 mg/dL (7-17); Calcium 8.5 mg/dL (8.4-10.2); Carbon Dioxide 23 mmol/L (22-32); Chloride 105 mmol/L (98-107); Estimated Glomerular Filt Rate > 60 mL/min (>60); Globulin 3.3 g/dL (1.7-4.1); Glucose 82 mg/dL (70-100); HEMOLYSIS < 15 (0-50); Potassium 4.1 mmol/L (3.4-5.1); Sodium 139 mmol/L (137-145); Total Protein 7.3 g/dL (6.3-8.2)
[2022-03-27 15:15] LABS: Hypochromasia 3+; Microcytosis 3+
== END ==
PROVIDERS: Family Provider Family Medicine; PCP Family Medicine; Referring Provider Family Medicine; Visit Provider Family Medicine
DX: N92.0 Excessive and frequent menstruation with regular cycle (principal); R06.02 Shortness of breath
CPT/HCPCS: 36415; 71046; 80053; 85025

== ENCOUNTER → 2022-03-31 13:01 | Outpatient (CLI) | payer OTHER, SELFPAY ==
[2022-03-31 14:14] LABS: COVID19 -Nasal RAPID Negative (Negative)
== END ==
PROVIDERS: Family Provider Family Medicine; PCP Family Medicine; Visit Provider Obstetrics & Gynecology
DX: Z01.812 Encounter for preprocedural laboratory examination (principal); Z20.822 Contact with and (suspected) exposure to COVID-19
CPT/HCPCS: 87635

== ENCOUNTER 2022-04-03 12:42 | Day surgery (SDC) | payer OTHER, SELFPAY ==
[2022-03-29 12:43] VITALS: BMI 24.0
[2022-04-03] VITALS (10 sets, daily range): BP systolic 113–146; BP diastolic 63–92; PULSE 58–82; RESP 14–25; TEMP 35.9–36.9; O2SAT 94–100; BMI 24.0
--- NOTE | 2022-04-03 | PATH_ITS ---
[facility] Accession Number: [id number] . 01 Material submitted: . uterus - UTERUS WITH BILATERAL FALLOPIAN TUBES . 01 Clinical history: . OPB EXCESSIVE AND FREQUENT MENSTRUATION WITH REGULAR SUBMUCOUS LEIOMYOMA OF UTERUS . 01 Diagnosis: A. Uterus With Bilateral Fallopian Tubes, Hysterectomy and Bilateral Salpingectomy: Myometrium with multiple leiomyomas (up to 1.4 cm) and adenomyosis. Benign proliferative endometrium. Bilateral fallopian tubes with reactive changes, and benign paratubal/paraovarian cysts. Cervix within normal limits. Negative for malignancy. [facility] 04/06/2022 1719 Local . 01 Electronically signed: . Kiera Gruber MD, Pathologist NPI- [id number] . 01 Gross description: . Received in formalin, labeled with the patient's name and uterus with bilateral fallopian tubes, and consists of an intact uterus (297 g, 11.2 cm SI, 7.3 cm AL, 7.3 cm AP) with attached left fallopian tube (5.5 x 0.7 cm), and attached right fallopian tube (6.2 x 0.7 cm), and no additional adnexa, and attached cervix (4.1 x 4.0 cm). The ectocervix is pink and smooth with a circular cervical os measuring 0.4 cm in diameter. The anterior parametrial margin is inked blue while the posterior parametrial margin is inked black. The uterine serosa is mac and smooth with no areas of pinpoint hemorrhage or adhesions identified. The endocervical canal has mac herringbone mucosa and measures 2.6 cm in length. The endometrial cavity is distorted by a large firm nodule measuring 4.0 cm in greatest dimension. The cavity measures approximately 4.2 cm from cornu to cornu and 6.5 cm in length. The endometrium is red and lush and averages 0.2 cm thick. The myometrium is pink and firm and contains multiple additional well-circumscribed white whorled nodules measuring up to 1.4 cm in greatest dimension. No hemorrhagic, necrosis, or additional lesions are identified. The left fallopian tube has congested serosa with a cystic structure near the fimbriated end measuring 1.0 cm in greatest dimension, filled with mac serous fluid. Sectioning reveals an unremarkable stellate lumen. The right fallopian tube has congested smooth serosa with multiple cystic structures near the fimbriated end measuring up to 0.9 cm in greatest dimension, filled with mac serous fluid. Sectioning reveals an unremarkable stellate lumen. Slat Basket Top Maker sections are submitted as follows: A1: Anterior cervix. A2: Posterior cervix. A3: Anterior full-thickness section. A4-A5: Composite posterior full-thickness section. A6: Slat Basket Top Maker nodules. A7: Left fallopian tube to include entire fimbriae and cross sections. A8: Right fallopian tube to include entire fimbriae and cross sections. ([id number]) /R 04/05/2022 [facility]6 Local . 01 Pathologist provided ICD-10: D25.0 . 01 CPT . 785686 Performed at: 01 [facility] [address] [place] [address], [place], [place] [id number] MD Vinicio Parker MD Phone: [phone]
[2022-04-03] MEDS: LACTATED RINGERS 1,000 ML 42 ML IV ×2 (13:45→15:57)
[2022-04-03] MEDS: FAMOTIDINE 20 MG/2 ML VIAL IV (13:50)
--- NOTE | 2022-04-03 14:48 | PM.PREOP ---
Pre-operative Note COVID-19 COVID-19 status: Negative Result date/Date tested (Pos, Neg/Pending): 03/31/22 Criteria for continued procedure: Non-surgical alternatives not available or appropriate per current SOC Interval Note History & Physical reviewed/Exam performed by Physician: Yes Changes to H&P: No
[2022-04-03] MEDS: CEFAZOLIN 2 GM/100 ML PREMIX 100 ML IV (15:10)
--- NOTE | 2022-04-03 15:31 | SUR.OPER ---
Lithotomy on padded OR bed. [place] Pad Positioner under torso. Head on pillow, arms padded and tucked at sides. Legs secured in padded yellow fins stirrups.
[2022-04-03] MEDS: BUPIVACAINE 0.5% W/ EPI (PF) 30 ML VIAL INJ (15:59)
--- NOTE | 2022-04-03 17:16 | P.OP_ITS ---
Operative Date/Time/Diagnoses Date of procedure: 04/03/22 Time of procedure: 17:16 Pre-op diagnosis: Menometrorrhagia Anemia due to blood loss Uterine fibroid Post-op diagnosis: same Procedure & Clinicians Procedure: Procedures Operation Date: 04/03/22 14:15 Actual Procedure Side Surgeon p Laparoscopic Total Hysterectomy W/Bilateral salpingectomy Bilateral Maxwell estrada MD Indications: Immanuel is a 45 yo LMP 03/28/2021 who was originally referred by her PCP for evaluation and treatment of menometrorrhagia and endometrial thickening on US.? 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 In addition to her periods being extremely heavy for 3-5 days each cycle, her menstrual cramps have become progressively severe with each period but she has started having nearly continuous cramping which is simply worse during her menstrual flow.? More recently her bleeding has become heavier resulting in blood-loss anemia requiring transfusion.? Her most recent pelvic ultrasound was performed 02/04/2021 which shows: FINDINGS:? ?? Uterus:? Uterus is normal in size at 10.5 x 6.0 x 7.2 cm.? The endometrium measures 17.2 mm in combined thickness.? Probable submucosal fibroid measuring 4.4 x 3.7 x 3.5 cm and there is a sub cm intramural fibroid. ? Ovaries:? Regressing physiologic cyst associated with the left ovary measuring 1.4 cm. Right ovary is normal. ? Other: ? No pathologic free abdominal or pelvic fluid. ? IMPRESSION:? ? 1. Prominence of the endometrial complex and presumed submucosal fibroid measuring up to 4.4 cm and there is a sub cm posterior intramural fibroid also seen. If indicated, pre and post contrast gynecologic protocol MRI could be performed for further assessment. ? 2. Regressing physiologic left ovarian cyst.? ? Review of the US images show a large submucous myoma, stage 2 > 50% myometrial thickness, distorting the EM cavity/stripe, stage 2 > 50% myometrial thickness.? Although the patient and her are not attempting , they would welcome another child.? As a consequence, the patient would prefer to avoid any therapy which would interfere with/and her opportunity to be a mother again.? That said, the patient does understand that her fertility at 45 is suboptimal and thus a successful would be unlikely.? Endometrial biopsy performed October 2021 shows almost secretory endometrium without atypia or other abnormality.? Her most recent Pap in 2019 is negative for cytologic abnormality and she has never had an abnormal during her reproductive years. After consideration of all options, the patient originally opted for hysterectomy but subsequently experienced a 2nd pulmonary embolus while on Xarelto and was switched over to her current regimen of daily Eliquis.? She subsequently decided to have uterine artery embolization and was scheduled to have it performed at [facility] today but canceled it in favor of moving forward with hysterectomy which is now scheduled for the main OR of [facility] on the afternoon of 04/03/2022.? She presents today for her her scheduled surgery. Surgeon: Maxwell Ross Wood Scrap Handler: Mariam Ramos Anesthesia Type: General Operative Notes Findings: 8-10 week myomatous uterus. Both tubes and ovaries are normal. The are no abnormalities of the anterior cul-de-sac. A small supericial endometriotis implant is noted on the left USL. The upper abdomen was normal to laparoscopic inspection. Both ureters were seen to actively peristalse at the completion of the surgery. Closure Type: primary Specimen(s): left tube, right tube and uterus Applied: catheter Estimated blood loss (mL): 50 Blood products transfused: none Procedure in detail: With the patient in modified dorsal lithotomy position preparations were made by prepping and draping the patient in usual manner for vaginal surgery and insertion of Arguelles catheter. A pre-surgical time-out was then taken in accordance with [facility] Main OR policy. A bivalve speculum was then placed in the vagina and the cervix visualized. The anterior lip of the cervix was then grasped with a single-tooth tenaculum. The uterus was sounded to 8 cm, the endocervical canal dilated slightly, and a [employer] uterine manipulator with a large colpotomy cup was placed. The umbilicus was then infiltrated with 0.5% Marcaine with epinephrine or a combination of 0.5% bupivacaine with epinephrine and liposomal bupivacaine. A 1 cm umbilical incision was made transversely and a Veress needle was used to insufflate the abdominal cavity with carbon dioxide. Once the abdomen was appropriately insufflated, a 5 mm trocar and sleeve were then placed through the umbilical incision. The scope was placed through the trocar and the initial assessment of the intra-abdominal contents carried out. A 2nd and 3rd 5 mm port was then placed 1st in the right mid quadrant from then the left mid quadrant by infiltration of the skin and subcutaneous tissues, a 1 cm transverse incision and insertion of the 5 mm bladeless port. Using a 3 puncture technique, the abdomen and pelvis were inspected laparoscopy. Uterus is mobilized with the [employer] manipulator and attention turned to the right adnexa. The distal tube on the left side was then grasped and the fimbria varicose divided after coagulation with the PowerSeal device. The dissection was then carried out toward the cornua then carried down using the PowerSeal so as to divide the utero-ovarian ligament and the round ligament with blunt and sharp dissection of the broad down to the level of the uterine artery. The uterine artery was then skeletonized after development of a bladder flap, coagulated, and divided. Once hemostasis was assured on the left side attention was turned to the right and the tube, utero-ovarian ligament, round ligament, and broad ligament were dissected in a fashion exactly the same as it had been on the right. The right uterine vessels were then visualized after skeletonization and coagulated and divided. The uterus was seen to caroline after coagulation of both your arteries and the cup was identified through the vaginal muscularis at its insertion with the body of the cervix. Circumferential excision of the vaginal cup was accomplished without difficulty using monopolar current and the uterus mobilized. The uterus was then removed through the vagina and the cuff closed with 0 Vicryl [id number] interrupted sutures. The abdomen was then reinsufflated, the pelvis inspected for any abnormality or bleeding, and with complete hemostasis assured, the pneumoperitoneum was vented and the ports removed. All of the 5 mm ports were then closed with 4-0 Monocryl on the skin using inverted interrupted sutures. Skin glue was placed and after the glue was dried, an appropriate dressing was applied. The case was then terminated, the patient awakened, and then transferred to PACU after having tolerated the procedure well. Complications: none Post-operative Condition: stable Disposition: PACU Plan for aftercare: Recovery in ambulatory surgery with discharge home in the AM if pain is under control and she is tolerating oral intake well.
[2022-04-03] MEDS: ONDANSETRON 4 MG/2 ML INJ IV (18:21)
[2022-04-03] MEDS: LACTATED RINGERS 1,000 ML 100 ML IV (18:21)
[2022-04-03] MEDS: OXYCODONE IR 5 MG TABLET PO (19:17)
[2022-04-03] MEDS: METOCLOPRAMIDE 10 MG/2 ML INJ IV (20:43)
[2022-04-03] MEDS: SCOPOLAMINE 1 PATCH TOP (20:44)
[2022-04-03] MEDS: MORPHINE 4 MG/ML INJ IV (21:13)
[2022-04-03] MEDS: IRON SUCROSE 200 MG in SODIUM CHLORIDE 0.9% 100 ML 220 MG IV (23:01)
[2022-04-04 01:00] VITALS: BP 143/71; PULSE 63; RESP 18; TEMP 36.8; O2SAT 97
[2022-04-04] MEDS: MORPHINE 4 MG/ML INJ IV (03:01)
[2022-04-04 05:11] VITALS: BP 112/59; PULSE 68; RESP 18; TEMP 36.5; O2SAT 96
[2022-04-04 06:19] LABS: Add Manual Diff / Slide Review NO; Basophils Absolute Auto 100 /uL (0-100); Basophils Percent Auto 0.6 % (0-2); Eosinophils Absolute Auto 0 /uL (0-450); Hematocrit 28.2 % (36-46); Hemoglobin 8.5 g/dL (12.0-16.0); Lymphocytes Absolute Auto 1800 /uL (1100-4500); Mean Corpuscular HGB Conc 30.2 % (30-36); Mean Corpuscular Hemoglobin 19.4 PG (26-34); Mean Corpuscular Volume 64.3 fL (80-100); Monocytes Absolute Auto 600 /uL (0-900); Monocytes Percent Auto 4.9 % (3-14); Neutrophils Absolute Auto 10400 /uL (1500-7000); Neutrophils Percent Auto 80.5 % (50-75); Platelet Count 358 X10^3/uL (150-400); Red Blood Cell Count 4.39 X10^6/uL (4.0-5.2); Red Cell Distribution Width 25.2 % (11.6-14.8)
[2022-04-04 06:34] LABS: Anisocytosis 3+; Hypochromasia 3+; Microcytosis 3+
--- NOTE | 2022-04-04 07:25 | P.DS_ITS ---
History of Present Illness History of Present Illness Date Patient Seen: 04/04/22 Time Patient Seen: 07:40 Chief complaint: OPB Discharge Providers Provider Date of admission: 04/03/2022 Discharge Date: 04/04/22 Primary care physician: Marry Blanchard DO Discharge provider: Maxwell Ross MD Summary Hospital Course Discharge Diagnosis: Menometrorrhagia Anemia secondary to chronic blood loss Uterine Fibroid Hospital Course: Immanuel was admitted on the afternoon of 04/03/2022 and underwent an uneventful total laparoscopic hysterectomy with bilateral salpingectomy. The details of that procedure well summarized on my dictated operative note of that date. Following her surgery, the patient has done extremely well with prompt return of bowel and bladder function, she is ambulating independently, tolerating regular diet, and her pain is well controlled with oral pain medications. Her H&H lydia to 8.5/28.2 following surgery and the patient received two 200 mg doses of IV iron sucrose post-op. She will be discharged at this time to home in an afebrile normotensive condition after counseling regarding precautionary symptoms, limitations of activity, medications, and plans for follow-up. Medications at discharge will include resumption of her Eliquis 5 mg p.o. b.i.d., oxycodone 5 mg p.o. q.6 hours as needed pain, dispense 12 with no refills. In addition the patient will take an ggpr-lxw-cnwcawm iron and vitamin-C tablet daily for the next 30 days and may use stool softeners and/or MiraLax for constipate of symptoms. Follow-up will be in 2 weeks or as needed. Status at Discharge Cognitive/behavioral status at discharge: oriented Functional status at discharge: independent ambulation Overall status at discharge: patient is progressing back to baseline Time Spent with Patient Time spent: Less than 30 minutes Exam Vital Signs (past 8 hours): - 04/04/22 01:00 04/04/22 05:11 Temperature 98.3 F 97.7 F Pulse Rate 63 68 Respiratory Rate 18 18 Blood Pressure 143/71 H 112/59 L Pulse Oximetry 97 96 Oxygen Flow Rate 0 0 Oxygen Delivery Method Nasal Cannula Oxygen Flow Rate 0 Const General: cooperative and comfortable Nutritional Appearance: average body habitus Orientation: alert and oriented x3 HENMT Head: normal to inspection, atraumatic and abrasion Ears: hearing grossly normal bilaterally Face and sinus: face symmetric Eyes General: appearance normal, both eyes and all related structures Conjunctivae: conjunctivae normal Sclera: sclerae normal EOM: EOM intact bilaterally Neck Neck: normal visual inspection Resp Effort & Inspection: normal respiratory effort and able to speak in complete sentences Auscultation: clear to auscultation bilaterally Cardio Rate: regular rate Rhythm: regular rhythm Heart Sounds: S1 normal, S2 normal and no murmurs GI Inspection: normal to inspection and incision (Surgical dressings clean and dry) Palpation: soft, no hepatosplenomegaly and tender (Mild, diffuse postsurgical tenderness) External Female Exam: other (No significant bleeding noted) Extrem General: no calf tenderness Psych Appearance: grossly normal Mental Status: mental status grossly normal Speech and Movement: speech and movement normal Mood: congruent mood Affect: normal affect Attitude: cooperative Thought Process: normal Thought Content: normal Judgment: judgment good Objective Labs Result Diagrams: 04/04/22 05:48 Labs: Laboratory Results - last 24 hr 04/03/22 04/04/22 14:52 05:48 WBC 13.0 H RBC 4.39 Hgb 8.0 L 8.5 L Hct 26.0 L 28.2 L MCV 64.3 L D MCH 19.4 L MCHC 30.2 RDW 25.2 H Plt Count 358 Neut % (Auto) 80.5 H Lymph % (Auto) 14.0 L [place] % (Auto) 4.9 Eos % (Auto) 0.0 L Baso % (Auto) 0.6 Neut # (Auto) 51545 H Lymph # (Auto) 1800 [place] # (Auto) 600 Eos # (Auto) 0 Baso # (Auto) 100 RBC Morphology See below Hypochromasia 3+ H Anisocytosis 3+ H Microcytosis 3+ H PFSH Medical History (Updated 04/03/22 @ 13:09 by Sarahi Pool RN) COVID-19 virus infection (~10/2021) Factor II deficiency History of fibula fracture (~2014) Pulmonary embolism (~2011) Vaginal delivery Family History Brother Pulmonary embolism Family/Other Pulmonary embolism Father Colon polyps Mother Hypertension Thyroid disease Social History household members: spouse Smoking Status: Never smoker alcohol intake: current Discharge Plan Discharge Plan Patient Disposition: Home Provider Discharge Comment: Please review the written instructions you received when you were discharged from the hospital. Your follow-up appointment will be 2 weeks after your surgery and I look forward to seeing you then. If however you have any issues, concerns or problems in the meanwhile, please contact me either through the office phone at [phone] or via the patient portal. Discharge orders & Medications Discharge Orders: Discharge (Order); Ordered 04/04/22 Ordered By: Maxwell Ross Prescriptions: New oxycodone 5 mg tablet 5 mg PO Q6H PRN (Reason: pain) 3 Days Qty: 12 0RF Continued Eliquis 5 mg tablet 5 mg PO BID Rx Instructions: take 1 tablet by mouth twice a day Follow up/Referrals: Marry Blanchard DO [Primary Care Provider] - Maxwell Ross MD [Physician] - Diet/Activity/Treatments Diet: Diet as Tolerated Activity: As tolerated Other treatments: Tylenol may also be used for pain following surgery. Take [id number]-[id number] 1 iron tablet daily along with an efro-vuw-mszypts vitamin-C tablet daily for the next 30 days. Stool softeners or MiraLax may also be used on an as-needed basis. Skin/Wound/Dressing Care Report to your healthcare provider any signs of infection, such as:: chills, fever, increased pain, unusual drainage and unusual redness Dressing: Dressings should be removed on the morning of 04/05/2022 Visit Report/Discharge Packet Instructions: DI for Hysterectomy, DI for Laparoscopy Stand Alone Forms: Surgery Discharge Print Language: Stateless Discharge Data Primary Care Provider: Marry Blanchard Attending Provider: Maxwell Ross Quality VTE Deep Vein Thrombosis/Pulmonary Embolism Present on Admission: No
[2022-04-04 08:12] VITALS: BP 114/68; PULSE 58; RESP 20; TEMP 36.6; O2SAT 98
[2022-04-04] MEDS: IRON SUCROSE 200 MG in SODIUM CHLORIDE 0.9% 100 ML 220 MG IV (08:48)
[2022-04-04] MEDS: APIXABAN 5 MG TABLET PO (08:48)
--- NOTE | 2022-04-04 09:08 | CM.DANOTE ---
DCP: Case received, EMR reviewed and met with patient. Spouse, Sony, was also at bedside. Introduced self and role. Was able to obtain some information in order to complete DCP assessment. Patient is a 46 year old female who admitted yesterday to the care of the HOSPICE DIRECTOR provider. PCP: Dr. Blanchard. Payer: confirmed: [employer]. Patient came to the hospital via private vehicle for a surgical procedure. Patient had a laparoscopic total hysterectomy with bilateral salpingectomy. Patient has history of menometrorrhagia. Met with patient in her room. She is alert and oriented, pleasant. Her spouse, Sony, was at bedside. Patient was just starting to have her breakfast. Confirmed that she resides here in [place] with spouse. She is independent at her baseline, and is self-employed. P: Patient is to be discharging home today. Deborah George RN/Sales And Service Technician Discharge Planning/Care Management CM Discharge Assessment Start: 04/04/22 09:07 Freq: Status: Active Protocol: Document 04/04/22 09:07 (Rec: 04/04/22 09:08 [id number]) Discharge Planning Assessment Assigned Dedicated Intermodal Truck Driver Deborah George RN/Sales And Service Technician Advance Directives? No History Provided By Patient,Medical Record Prior Living Arrangements House Household Members spouse Type of transporation used prior to Drives own vehicle admit Independent with ADL's Yes Is patient alert and oriented? Yes Caregiver for Another No Barriers to Discharge No Discharge Plan Home Transportation Arrangement Spouse Referrals Initiated None needed Whiteboard Updated in Patient Room with Yes name and ext. # of Dedicated Intermodal Truck Driver Review Status In Process Next Review Type Continued Stay Review Pre-Anesthesia Assessment Start: 03/29/22 12:43 Freq: Status: Complete Protocol: Document 03/29/22 12:43 [facility] (Rec: 03/29/22 12:51 [facility] [id number]) Pre-Anesthesia Assessment Patient Information Reviewed Via Chart Review Comment COVID screen @ 03/31/22 Primary Care Provider Marry Blanchard Seen Specialist in Last 12 Months Yes Specialist Seen Emergency,Manager In Training, Oncologist Primary Language Nigerien Supervisor Grower Required No Height 5 ft 4 in Weight 140 lb Body Mass Index (BMI) 24.0 Barriers to Learning None Anesthesia Review Requested No Machine Stone Polisher No alcohol intake current alcohol intake frequency holidays/special occasions only Smoking Status Never smoker Substance Use Type does not use Is patient on oxygen? No Hx Sleep Apnea No Currently Taking a Beta Dorie No Anti-Coagulant Therapy Yes: Eliquis-Unknown what insructions given to pt Cardiac Testing No Hx Pacemaker/ICD No Urinary Catheter Present No Hx Urinary Self Catheterization No Diabetes No Patient No Lactating No Have you had any close contact with Pt had Covid in October 2021 someone diagnosed with COVID-19? Are you experiencing any of these Shortness of breath,Weakness symptoms? Received a COVID vaccine? Yes: 3/3 Marital Status Lives With spouse Patient Discharge Plan Description Return Home Advance Directives? No
[2022-04-04] MEDS: ACETAMINOPHEN 325 MG TABLET 650 MG PO (10:31)
[2022-04-04] MEDS: OXYCODONE IR 5 MG TABLET PO (10:32)
--- NOTE | 2022-04-04 12:37 | PC.NURSE ---
alert and oriented voices needs. sba mobility, using warm bath blanket as splint. SCD's on. Dr Bravo in to see patient, she can d/c later today after IV iron infusion, and eloquis. tolerated about 50cc iron infusion, then PIV started becoming painful. PIV dc'd and sent Dr bravo message requesting no iv as patient declining to have another PIV placed. Dr bravo gave ok for patient to d/c, says she is to take iron PO after d/c. d/c reviewed by LUIZ bynum who completed d/c w/ patient and her .
== END 2022-04-04 13:00 | disposition home or self-care (01) ==
LOC: OR 12:44 → AC 12:45
PROVIDERS: Family Provider Family Medicine; PCP Family Medicine; Referring Provider Obstetrics & Gynecology; Visit Provider Obstetrics & Gynecology
PROC: 0UT94ZZ Resection of Uterus, Percutaneous Endoscopic Approach (ICD-10-PCS; CPT 58573; principal; 2022-04-03 14:15)
DX: N92.0 Excessive and frequent menstruation with regular cycle (principal); D25.0 Submucous leiomyoma of uterus; D50.0 Iron deficiency anemia secondary to blood loss (chronic); Z86.711 Personal history of pulmonary embolism; D68.59 Other primary thrombophilia; N83.8 Other noninflammatory disorders of ovary, fallopian tube and broad ligament; N80.0 Endometriosis of uterus
CPT/HCPCS: 58573; 36415; 81025; 82962; 85014; 85018; 85025; J0690; J1100; J1170; J1756; J2270; J2405; J2765; J2795

== ENCOUNTER → 2023-03-22 07:38 | Outpatient (CLI) | payer OTHER, SELFPAY ==
[2022-04-03 12:58] VITALS: BMI 24.0
--- NOTE | 2023-03-22 07:39 | DI.MG.S_ITS ---
BILATERAL DIGITAL SCREENING MAMMOGRAM 3D/2D WITH CAD: 03/22/2023 CLINICAL: Baseline exam. Routine screening. No prior exams were available for comparison. Both breasts are heterogeneously dense, which may obscure small masses (category c / 51-75% glandular tissue). Current study was also evaluated with a Computer Aided Detection (CAD) system. There are bilateral round and oval masses with circumscribed margins. No other significant masses, calcifications, or other findings are seen in either breast. IMPRESSION: BENIGN Bilateral benign appearing oval and round circumscribed masses. No mammographic evidence of malignancy. A 1 year screening mammogram is recommended. Based on the Tyrer Cuzick model (a risk assessment model) the patient's lifetime risk is 9.7% and her 10 year risk is 2.0%. According to the ACR, ACS, and NCCN guidelines, an annual breast MRI exam along with mammogram is recommended if the patient's lifetime risk is 20% or greater. This exam was interpreted at Station ID: [id number]. NOTE: For mammograms, a report in lay terms will be sent to the patient. Approximately 15% of breast malignancies will not be visualized mammographically. In the management of a palpable breast mass, a negative mammogram must not discourage biopsy of a clinically suspicious lesion. Electronically Signed By: Kanika Roach M.D. esb/:03/27/2023 09:47:24 letter sent: Normal Exam ACR BI-RADS Category 2: Benign Finding(s) 3342F
== END ==
PROVIDERS: Family Provider Family Medicine; PCP Student in an Organized Health Care Education/Training Program; Referring Provider Family Medicine; Visit Provider Family Medicine
DX: Z12.31 Encounter for screening mammogram for malignant neoplasm of breast (principal)
CPT/HCPCS: 77063; 77067

== ENCOUNTER 2023-05-22 12:24 | Day surgery (SDC) | payer OTHER, SELFPAY ==
[2022-04-03 12:58] VITALS: BMI 24.0
[2023-05-22] MEDS: LACTATED RINGERS 1,000 ML 42 ML IV (13:12)
[2023-05-22 13:13] VITALS: BP 152/92; PULSE 65; RESP 16; TEMP 36.6; O2SAT 98; BMI 22.1
--- NOTE | 2023-05-22 13:17 | PM.HP.1 ---
History of Present Illness History of Present Illness Date Patient Seen: 05/22/23 Time Patient Seen: 13:17 Chief complaint: SDC Narrative: 47-year-old woman PMH pulmonary embolism on chronic anticoagulation here for screening colonoscopy. No previous colonoscopy. No family history of intestinal malignancy. No abdominal concerns today including but not limited to abdominal pain, unintentional weight loss, blood per rectum anorexia. [facility] History Factor II deficiency COVID-19 virus infection (~10/2021) Vaginal delivery Pulmonary embolism (~2011) History of fibula fracture (~2014) Surgical History History of hysterectomy for benign disease (~03/2022) Family History Brother Pulmonary embolism Family/Other Pulmonary embolism Father Colon polyps Mother Hypertension Thyroid disease Social History household members: spouse Smoking Status: Never smoker alcohol intake: current Meds Home Medications and Allergies Home Medications Medication Instructions Recorded Confirmed Type apixaban 5 mg tablet (Eliquis) 5 mg PO BID #60 tabs 04/18/23 05/22/23 Rx Allergies Allergy/AdvReac Type Severity Reaction Status Date / Time No Known Drug Allergies Allergy Verified 05/22/23 13:11 Exam Vital Signs (past 8 hours): - 05/22/23 13:13 Temperature 97.9 F Pulse Rate 65 Respiratory Rate 16 Blood Pressure 152/92 H Pulse Oximetry 98 Oxygen Delivery Method Room Air Oxygen Delivery Method Room Air Narrative Exam Narrative: General adult woman alert oriented no acute distress Chest nonlabored respiration Extremities warm well perfused Assessment & Plan Assessment & Plan narrative: The patient requires colorectal screening and colonoscopy is recommended. Technical details were discussed. Risks, benefits, alternatives explained. Risks including but not limited to myocardial infarction, aspiration, bleeding, pain, missed lesion, incomplete examination, need for further radiographic studies, colonic perforation, and need for major abdominal surgery were discussed. All questions were answered to their satisfaction, and they are in agreement with this plan.
[2023-05-22 13:40] VITALS: BP 124/82; PULSE 65; RESP 16; TEMP 36.3; O2SAT 96
--- NOTE | 2023-05-22 13:43 | P.OP.COLON_ITS ---
Operative Date/Time/Diagnoses Date of procedure: 05/22/23 Time of procedure: 13:43 Pre-op diagnosis: Colorectal screening Procedure & Clinicians Study performed: Colonoscopy Same procedure as scheduled: Yes Indications: Colorectal screening Surgeon: Dat Kearney Procedure Notes Procedure in detail: The history and physical was performed/updated and the patient is ASA class is 2. The procedure was discussed in detail with the patient. Potential risks complications including infection, bleeding, missed diagnosis, perforation, need for surgery, and were explained. Their questions were answered and informed consent was obtained. Patient was brought to the procedure room and placed standard monitoring equipment. The patient's vital signs were monitored continuously throughout the entire procedure. Prior to starting time-out was performed. The patient was placed in the left lateral recumbent position. Procedural sedation was administered by anesthesia. Examination began with a thorough inspection of the perianal area there was no evidence of fissures, fistulae, external hemorrhoids or cutaneous malignancy. The colonoscopy scope was then placed into the anal canal and was advanced to the cecum, which was identified by the ileocecal valve , the appendiceal orifice and the confluence of the taenia. The scope was then slowly withdrawn examining colon thoroughly in all directions, irrigating it of any residual stool. The scope was retroflexed within the rectum The patient tolerated the procedure well. They will be discharged once criteria are met. The prep was of good/excellent quality. The withdrawl time was 6 minutes. FINDINGS * Unremarkable colon. Normal healthy colon without polyps masses or inflammation. Specimen(s): none sent Impression: Normal colonoscopy Post-procedure Recommendations: Colonoscopy in 10 years Disposition: same day surgery
[2023-05-22 13:45] VITALS: BP 122/74; PULSE 65; RESP 16; O2SAT 100
[2023-05-22 13:50] VITALS: BP 138/88; PULSE 67; RESP 16; O2SAT 100
[2023-05-22 14:03] VITALS: BP 153/96; PULSE 61; RESP 16; O2SAT 100
== END 2023-05-22 14:22 | disposition home or self-care (01) ==
PROVIDERS: Family Provider Family Medicine; PCP Student in an Organized Health Care Education/Training Program; Referring Provider Surgery; Visit Provider Surgery
PROC: 0DJD8ZZ Inspection of Lower Intestinal Tract, Via Natural or Artificial Opening Endoscopic (ICD-10-PCS; CPT 45378; principal; 2023-05-22 13:30)
DX: Z12.11 Encounter for screening for malignant neoplasm of colon (principal)
CPT/HCPCS: 45378; J2704

== ENCOUNTER 2023-12-19 11:02 | Emergency (ER) | payer OTHER, SELFPAY ==
[2022-04-03 12:58] VITALS: BMI 24.0
[2023-12-19 11:18] VITALS: BP 182/107; PULSE 82; RESP 19; TEMP 36.6; O2SAT 99; BMI 22.3
--- NOTE | 2023-12-19 11:24 | DI.RAD.S_ITS ---
PROCEDURE: XR CHEST 1V INDICATIONS: chest pain TECHNIQUE: One view of the chest was acquired. COMPARISON: [facility], CR, XR CHEST 2V, 03/27/2022, 14:20. [facility], CR, XR CHEST 1V, 04/25/2020, 14:32. FINDINGS: Surgical changes and devices: None. Lungs and pleura: Lungs are clear. No pleural effusions or pneumothorax. Mediastinum: Mediastinal contours appear normal. Heart size is normal. Bones and chest wall: No suspicious bony lesions. Overlying soft tissues appear unremarkable. IMPRESSION: No acute cardiopulmonary abnormality is seen. Dictated by: Sherif Del Angel M.D. on 12/19/2023 at 12:12 Approved by: Sherif Del Angel M.D. on 12/19/2023 at 12:13
[2023-12-19 11:39] LABS: Add Manual Diff / Slide Review NO; Basophils Absolute Auto 100 /uL (0-100); Basophils Percent Auto 1.2 % (0-2); Eosinophils Absolute Auto 100 /uL (0-450); Eosinophils Percent Auto 1.5 % (2-4); Hematocrit 42.2 % (36-46); Hemoglobin 14.1 g/dL (12.0-16.0); Lymphocytes Absolute Auto 2200 /uL (1100-4500); Lymphocytes Percent Auto 41.5 % (25-40); Mean Corpuscular HGB Conc 33.5 % (30-36); Mean Corpuscular Hemoglobin 31.2 PG (26-34); Mean Corpuscular Volume 93.1 fL (80-100); Monocytes Absolute Auto 300 /uL (0-900); Monocytes Percent Auto 5.2 % (3-14); Neutrophils Absolute Auto 2700 /uL (1500-7000); Neutrophils Percent Auto 50.6 % (50-75); Platelet Count 310 X10^3/uL (150-400); Red Blood Cell Count 4.53 X10^6/uL (4.0-5.2); White Blood Cell Count 5.3 X10^3/uL (4.5-11.0)
[2023-12-19 11:43] LABS: INR 1.3 (0.9-1.3); Prothrombin Time 14.6 SECONDS (9.4-12.5)
[2023-12-19 11:45] LABS: PTT Partial Thromboplastin Tim 41 SECONDS (25.1-36.5)
[2023-12-19 11:47] LABS: Alanine Aminotransferase 19 IU/L (<35); Albumin 4.4 g/dL (3.5-5.0); Albumin Globulin Ratio 1.4 (1.0-2.8); Alkaline Phosphatase 61 U/L (38-126); Aspartate Aminotransferase 19 IU/L (14-36); BUN Creatinine Ratio 20.9 (6-22); Bilirubin Total 0.5 mg/dL (0.2-1.3); Blood Urea Nitrogen 14 mg/dL (7-17); Calcium 9.1 mg/dL (8.4-10.2); Carbon Dioxide 28 mmol/L (22-32); Chloride 107 mmol/L (98-107); Creatine Kinase 48 U/L (30-135); Estimated Glomerular Filt Rate > 60 mL/min (>60); Globulin 3.1 g/dL (1.7-4.1); Glucose 112 mg/dL (70-100); HEMOLYSIS < 15 (0-50); Lipase 50 U/L (23-300); Magnesium 2.2 mg/dL (1.6-2.3); Potassium 4.1 mmol/L (3.4-5.1); Sodium 139 mmol/L (137-145); Total Protein 7.5 g/dL (6.3-8.2)
[2023-12-19 11:59] LABS: Troponin I < 0.012 ng/mL (0.01-0.034)
--- NOTE | 2023-12-19 12:12 | ED_ITS ---
HPI - Chest Pain General Chief Complaint: Chest Pain Stated Complaint: high bp Time Seen by Provider: 12/19/23 12:12 History of Present Illness HPI narrative: 48-year-old female with history of Factor II deficiency, two prior episodes of pulmonary emboli, taking Eliquis anticoagulation, now with one-week duration of intermittent substernal chest discomfort, feels a little anxious about it, worried that she might be having another pulmonary embolus problem, as her previous symptoms apparently were fairly subtle. She recalls having 1st diagnosis of pulmonary embolus 2012 with some shortness of breath, follow up with Hematology labs were sent in factor 2 deficiency discovered, she has a brother who has had pulmonary emboli as well, she was taking Xarelto low dose for a while, on Xarelto in 2020 she had a 2nd pulmonary embolus, subsequent to that was switched to Eliquis 5 mg twice daily which she is still taking. She estimates in the last week she misses perhaps 1 dose of Eliquis, the previous week probably also missed 1 dose of Eliquis. She has no pain in her legs, no leg swelling. Related Data Previous Rx's Medication Instructions Recorded apixaban 5 mg tablet (Eliquis) 5 mg PO BID #60 tabs 11/08/23 Allergies Allergy/AdvReac Type Severity Reaction Status Date / Time No Known Drug Allergies Allergy Verified 05/22/23 13:11 Review of Systems Review of Systems Narrative: as per HPI Patient History Medical History Factor II deficiency COVID-19 virus infection (~10/2021) Vaginal delivery Pulmonary embolism (~2011) History of fibula fracture (~2014) Surgical History History of hysterectomy for benign disease (~03/2022) Family History Brother Pulmonary embolism Family/Other Pulmonary embolism Father Colon polyps Mother Hypertension Thyroid disease Social History household members: spouse Smoking Status: Never smoker alcohol intake: current Smoking Status: Never smoker alcohol intake frequency: holidays/special occasions only Substance Use Type: does not use Exam Narrative Exam Narrative: GENERAL: Well-developed patient, in mild distress. HEAD: Atraumatic. Normocephalic. EYES: Pupils equal round and reactive. Extraocular motions intact. No scleral icterus. No injection or drainage. ENT: Nose without bleeding, purulent drainage. Throat without erythema, tonsillar hypertrophy or exudate. Airway patent. NECK: Trachea midline. Non tender CARDIOVASCULAR: Regular rate and rhythm without murmurs, gallops, or rubs. RESPIRATORY: Clear to auscultation. Breath sounds equal bilaterally. No wheezes, rales, or rhonchi. GASTROINTESTINAL: Abdomen soft, non-tender, nondistended. EXTREMITIES: No edema or joint tenderness. BACK: Nontender without deformity or crepitance. No flank tenderness. NEURO: AOx3. SKIN: No rash or erythema of visible areas Initial Vital Signs Initial Vital Signs: Vital Signs Temperature 98 F 12/19/23 11:18 Pulse Rate 82 12/19/23 11:18 Respiratory Rate 19 12/19/23 11:18 Blood Pressure 182/107 H 12/19/23 11:18 Pulse Oximetry 99 12/19/23 11:18 Oxygen Delivery Method Room Air 12/19/23 11:18 Course Orders Ordered: ED Orders 12/19/23 15:34 Trop I [Troponin I] Stat Vital Signs Vital signs: Vital Signs - 8 hr 12/19/23 14:51 Pulse Rate 67 Respiratory Rate 16 Blood Pressure 143/91 H Pulse Oximetry 99 Oxygen Delivery Method Room Air MDM - Chest Pain Lab Data Attestation: I reviewed the patient's lab results. 12/19/23 11:25 12/19/23 11:25 Labs: Lab Results 12/19/23 12/19/23 Range/Units 11:25 15:34 WBC 5.3 (4.5-11.0) X10^3/uL RBC 4.53 (4.0-5.2) X10^6/uL Hgb 14.1 (12.0-16.0) g/dL Hct 42.2 (36-46) % MCV 93.1 (80-100) fL MCH 31.2 (26-34) PG MCHC 33.5 (30-36) % RDW 13.0 (11.6-14.8) % Plt Count 310 (150-400) X10^3/uL Neut % (Auto) 50.6 (50-75) % Lymph % (Auto) 41.5 H (25-40) % Mcdonough % (Auto) 5.2 (3-14) % Eos % (Auto) 1.5 L (2-4) % Baso % (Auto) 1.2 (0-2) % Neut # (Auto) 2700 (3375-2406) /uL Lymph # (Auto) 2200 (6717-5730) /uL Mcdonough # (Auto) 300 (0-900) /uL Eos # (Auto) 100 (0-450) /uL Baso # (Auto) 100 (0-100) /uL PT 14.6 H (9.4-12.5) SECONDS INR 1.3 (0.9-1.3) APTT 41 H (25.1-36.5) SECONDS Sodium 139 (137-145) mmol/L Potassium 4.1 (3.4-5.1) mmol/L Chloride 107 (98-107) mmol/L Carbon Dioxide 28 (22-32) mmol/L BUN 14 (7-17) mg/dL Creatinine 0.67 (0.52-1.04) mg/dL Estimated GFR > 60 (>60) mL/min BUN/Creatinine Ratio 20.9 (6-22) Glucose 112 H (70-100) mg/dL Calcium 9.1 (8.4-10.2) mg/dL Magnesium 2.2 (1.6-2.3) mg/dL Total Bilirubin 0.5 (0.2-1.3) mg/dL AST 19 (14-36) IU/L ALT 19 (<35) IU/L Alkaline Phosphatase 61 (38-126) U/L Total Creatine Kinase 48 (30-135) U/L Troponin I < 0.012 < 0.012 (0.01-0.034) ng/mL Total Protein 7.5 (6.3-8.2) g/dL Albumin 4.4 (3.5-5.0) g/dL Globulin 3.1 (1.7-4.1) g/dL Albumin/Globulin Ratio 1.4 (1.0-2.8) Lipase 50 (23-300) U/L Imaging Data CT scan - chest: Radiologist's Impression: [address] [address] [address] Scan Report Signed Patient: Immanuel Murray MR#: [id number] : 1975 Acct:[id number] Age/Sex: 48 / F Date of Service: 12/19/23 Loc: ED Accession Number: [id number] Procedure: CT angio chest PE protocol Ordering Provider: Jim Villanueva MD PROCEDURE: CT ANGIO CHEST PE PROTOCOL INDICATIONS: chest pain, hx PE TECHNIQUE: After the administration of intravenous contrast, 2 mm thick sections acquired from the pulmonary apices to the posterior costophrenic angles. 3-dimensional maximum intensity projection (MIP) coronal and sagittal reformats were then acquired through the thorax. For radiation dose reduction, the following was used: automated exposure control, adjustment of mA and/or kV according to patient size. COMPARISON: [facility], CT, CT ANGIO CHEST PE PROTOCOL, 08/31/2021, 9:09. FINDINGS: Image quality: Diagnostic. Pulmonary arteries: Pulmonary arteries are normal in size, and demonstrate no intraluminal filling defects to suggest central pulmonary embolism. Lower Neck: No enlarged lymph nodes. Thyroid: No thyroid nodules which require sonographic follow up, per consensus guidelines. Axillae: No enlarged lymph nodes. Chest Wall: Unremarkable. Bones: Unremarkable. Lungs and Pleura: No pneumothorax or pleural effusions. No focal pulmonary consolidations. Scattered pulmonary nodules measuring 4 mm or less, for example series 5, image 132, are stable in appearance compared to prior. Heart: Heart size is normal. No pericardial effusion. Thoracic Vessels: No aortic aneurysm. Mediastinum and Symone: No enlarged lymph nodes. Esophagus: No wall thickening. No hiatal hernia. Upper Abdomen: Visualized upper abdomen solid organs and bowel loops appear normal. IMPRESSION: No pulmonary embolus. No acute cardiopulmonary process. Stable scattered pulmonary nodules measuring 4 mm or less. Dictated by: Sherif Del Angel M.D. on 12/19/2023 at 13:04 Approved by: Sherif Del Angel M.D. on 12/19/2023 at 13:11 ECG Data Attestation: I personally reviewed and interpreted this ECG as follows: Interpretation: Normal sinus rhythm with rate of 68, no obvious ST segment elevation or depression changes. T-wave inversion in lead 3 but upright in other contiguous inferior leads 2 and F. SC 112, QRS 98, QTC 416. MDM Narrative Medical decision making narrative: 48-year-old female with history of prior pulmonary emboli, taking Eliquis, history of factor 2 deficiency with she and her brother, now with intermittent chest discomfort for the last week, feels anxious that she might be having another pulmonary embolus, has missed a couple of doses of Eliquis over the last couple of weeks but is generally quite compliant. No tachycardia noted on triage, normal oxygenation, no respiratory distress, no leg pain or swelling symptoms. Screening EKG with no tachycardia, no ischemic changes. Chest x-ray negative. GFR favorable, CTA chest PE protocol ordered. CTA study PE protocol showed no PE or other acute changes. Lung nodules noted. Repeat interval troponin. Repeat troponin negative. Further workup as outpatient for now. Continue chronic anticoagulation. Discharged home, return precautions discussed Critical Care Time Critical Care Time Critical Care Time: Yes Total Critical Care Time: 31 Attestation: The high probability of a clinically significant, sudden or life threatening deterioration of the [cardiopulmonary] system(s) required my full and direct attention, intervention and personal management. The aggregate critical care time was [31] minutes. This time is in addition to time spent performing reported procedures but includes the following: [x] Data Review and interpretation [x] Patient assessment and monitoring of vital signs [x] Documentation [x] Medication orders and management Discharge Plan Departure Patient Disposition: Home Clinical Impression: Chest pain, History of pulmonary embolism, Chronic anticoagulation Instructions: DI for Chest Pain Activity Restrictions/Additional Instructions: History of Factor II deficiency and previous pulmonary embolus 2 episodes, taking Eliquis chronic anticoagulation, chest discomfort tonight, EKG and serial blood tests not suggestive of a heart attack at this time. CT angiogram of the chest was performed, no blood clot to the lungs or other acute conditions identified. Unclear cause of your chest pain, consider further cardiac evaluation as an outpatient for now. 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 Peck on-call to consider further cardiac evaluation as an outpatient. Return to this/nearest emergency department for any change worsening symptoms or any concerns prior Prescriptions: No Action Eliquis 5 mg tablet 5 mg PO BID Qty: 60 5RF Referrals: Allison Peck MD [Physician] - Lanette Valdes MD [Primary Care Provider] - Stand Alone Forms: Patient Portal/API
--- NOTE | 2023-12-19 12:15 | DI.CT.S_ITS ---
PROCEDURE: CT ANGIO CHEST PE PROTOCOL INDICATIONS: chest pain, hx PE TECHNIQUE: After the administration of intravenous contrast, 2 mm thick sections acquired from the pulmonary apices to the posterior costophrenic angles. 3-dimensional maximum intensity projection (MIP) coronal and sagittal reformats were then acquired through the thorax. For radiation dose reduction, the following was used: automated exposure control, adjustment of mA and/or kV according to patient size. COMPARISON: [facility], CT, CT ANGIO CHEST PE PROTOCOL, 08/31/2021, 9:09. FINDINGS: Image quality: Diagnostic. Pulmonary arteries: Pulmonary arteries are normal in size, and demonstrate no intraluminal filling defects to suggest central pulmonary embolism. Lower Neck: No enlarged lymph nodes. Thyroid: No thyroid nodules which require sonographic follow up, per consensus guidelines. Axillae: No enlarged lymph nodes. Chest Wall: Unremarkable. Bones: Unremarkable. Lungs and Pleura: No pneumothorax or pleural effusions. No focal pulmonary consolidations. Scattered pulmonary nodules measuring 4 mm or less, for example series 5, image 132, are stable in appearance compared to prior. Heart: Heart size is normal. No pericardial effusion. Thoracic Vessels: No aortic aneurysm. Mediastinum and Symone: No enlarged lymph nodes. Esophagus: No wall thickening. No hiatal hernia. Upper Abdomen: Visualized upper abdomen solid organs and bowel loops appear normal. IMPRESSION: No pulmonary embolus. No acute cardiopulmonary process. Stable scattered pulmonary nodules measuring 4 mm or less. Dictated by: Sherif Del Angel M.D. on 12/19/2023 at 13:04 Approved by: Sherif Del Angel M.D. on 12/19/2023 at 13:11
[2023-12-19 12:21] VITALS: BP 178/86; PULSE 68; O2SAT 100
[2023-12-19 14:51] VITALS: BP 143/91; PULSE 67; RESP 16; O2SAT 99
[2023-12-19 16:06] LABS: Troponin I < 0.012 ng/mL (0.01-0.034)
== END 2023-12-19 16:37 | disposition home or self-care (01) ==
PROVIDERS: Emergency Provider Emergency Medicine; Family Provider Family Medicine; PCP Student in an Organized Health Care Education/Training Program
DX: R07.9 Chest pain, unspecified (principal); Z79.01 Long term (current) use of anticoagulants; Z86.711 Personal history of pulmonary embolism
CPT/HCPCS: 36415; 71045; 71275; 80053; 82550; 83690; 83735; 84484; 85025; 85610; 85730; 93005; 99284; Q9967

== ENCOUNTER → 2025-04-14 12:08 | Outpatient (CLI) | payer OTHER, SELFPAY ==
[2022-04-03 12:58] VITALS: BMI 24.0
== END ==
LOC: LAB 12:08
PROVIDERS: PCP Student in an Organized Health Care Education/Training Program; Visit Provider Student in an Organized Health Care Education/Training Program
DX: N39.0 Urinary tract infection, site not specified (principal)
CPT/HCPCS: 87086

== ENCOUNTER → 2025-05-08 16:39 | Outpatient (CLI) | payer OTHER, SELFPAY ==
[2022-04-03 12:58] VITALS: BMI 24.0
--- NOTE | 2025-05-08 16:39 | DI.MRI.S_ITS ---
PROCEDURE: MR PELVIS WO CON INDICATIONS: bilateral hip pain TECHNIQUE: Noncontrast axial and oblique coronal T1 spin echo and STIR through the sacroiliac joints. COMPARISON: [facility], CR, ORTHO-XR HIP BILAT W/PEL 3-4, 05/05/2025, 9:05. TECHNIQUE: Multiplanar, multisequence magnetic resonance imaging was performed of the pelvis without contrast. FINDINGS: OSSEOUS STRUCTURES: No fracture. No suspicious marrow replacing process. Modic type 1 changes centered about the L5-S1 disc space. No fracture. Red and yellow marrow in the bony pelvis. Bone marrow edema within the anterior and superior left acetabulum. Small left hip joint effusion. MUSCLES / TENDONS: Moderate distal tendinosis of the right gluteus minimus. No high-grade tear. Mild insertional tendinosis of the left gluteus minimus and medius. Trace bilateral trochanteric bursitis. Intact bilateral hamstring origin. Intact bilateral iliopsoas tendons. Mild tendinosis of the indirect head of the left rectus femoris. The adductors are unremarkable. NEUROVASCULAR: Unremarkable SOFT TISSUE: Normal subcutaneous fat. Post hysterectomy. IMPRESSION: 1. Subchondral bone marrow edema in the anterior left femoral acetabular joint with suboptimal assessment to the large field of view of the articular cartilage. Recommend correlation with dedicated left hip MRI for further assessment. 2. Degenerative disc Modic type 1 changes at L5-S1. 3. Moderate insertional tendinosis of the right gluteus minimus and mild insertional tendinosis of the left gluteus minimus and medius. 4. Mild tendinosis of the indirect head of the left rectus femoris. Dictated by: Omari Styles M.D. on 05/11/2025 at 11:42 Approved by: Omari Styles M.D. on 05/11/2025 at 12:00
== END ==
PROVIDERS: PCP Student in an Organized Health Care Education/Training Program; Referring Provider Orthopaedic Surgery Adult Reconstructive Orthopaedic Surgery; Visit Provider Orthopaedic Surgery Adult Reconstructive Orthopaedic Surgery
DX: M47.817 Spondylosis without myelopathy or radiculopathy, lumbosacral region (principal); M25.551 Pain in right hip; M25.552 Pain in left hip; M67.952 Unspecified disorder of synovium and tendon, left thigh; M67.951 Unspecified disorder of synovium and tendon, right thigh
CPT/HCPCS: 72195

== ENCOUNTER → 2025-05-26 09:10 | Outpatient (CLI) | payer OTHER, SELFPAY ==
[2022-04-03 12:58] VITALS: BMI 24.0
--- NOTE | 2025-05-26 09:13 | EKG_ITS ---
[facility]
[2025-05-26 10:17] LABS: Add Manual Diff / Slide Review NO; Hematocrit 40.8 % (36-46); Hemoglobin 13.7 g/dL (12.0-16.0); Lymphocytes Absolute Auto 2200 /uL (1100-4500); Mean Corpuscular HGB Conc 33.5 % (30-36); Mean Corpuscular Hemoglobin 31.1 PG (26-34); Mean Corpuscular Volume 92.6 fL (80-100); Platelet Count 302 X10^3/uL (150-400)
[2025-05-26 10:26] LABS: Hemoglobin A1C% w Est Avg Glu 5.1 % (4.0-6.0)
[2025-05-26 10:39] LABS: HEMOLYSIS < 15 (0-50)
[2025-05-26 10:44] LABS: Albumin 4.0 g/dL (3.5-5.0); Blood Urea Nitrogen 14 mg/dL (7-17); Calcium 9.0 mg/dL (8.4-10.2); Carbon Dioxide 25 mmol/L (22-32); Chloride 104 mmol/L (98-107); Estimated Glomerular Filt Rate > 60 mL/min (>60); Glucose 90 mg/dL (70-99); Potassium 4.4 mmol/L (3.4-5.1); Sodium 138 mmol/L (137-145)
[2025-05-26 10:46] LABS: Cholesterol 215 mg/dL (140-199); HDL Cholesterol 73 mg/dL (40-60); Triglycerides 106 mg/dL (35-150)
[2025-05-26 10:47] LABS: Vitamin D 25 Hydroxy (D3) 52.5 ng/mL (30.0-100.0)
[2025-05-26 11:15] LABS: Prealbumin 27.3 mg/dL (17.6-36.0)
[2025-05-26 11:16] LABS: Thyroid Stimulating Hormone 1.00 uIU/mL (0.47-4.68)
== END ==
PROVIDERS: PCP Student in an Organized Health Care Education/Training Program; Referring Provider Orthopaedic Surgery Adult Reconstructive Orthopaedic Surgery; Visit Provider Orthopaedic Surgery Adult Reconstructive Orthopaedic Surgery
DX: Z01.818 Encounter for other preprocedural examination (principal); D68.2 Hereditary deficiency of other clotting factors; D68.59 Other primary thrombophilia; M16.0 Bilateral primary osteoarthritis of hip; M25.551 Pain in right hip; M25.552 Pain in left hip; I10 Essential (primary) hypertension; Z86.711 Personal history of pulmonary embolism
CPT/HCPCS: 36415; 80048; 80061; 82040; 82043; 82306; 82570; 83036; 84134; 84443; 85025; 93005

== ENCOUNTER → 2025-06-15 08:00 | Outpatient (CLI) | payer OTHER, SELFPAY ==
[2022-04-03 12:58] VITALS: BMI 24.0
--- NOTE | 2025-06-15 08:01 | DI.MG.S_ITS ---
MM screening mammo BI: 06/15/2025. BI-RADS: 1 CLINICAL: 49-year old female for bilateral screening mammogram. Tyrer-Cuzick lifetime risk of 12.9%. No personal or first-degree family history of breast cancer. PRIOR EXAMS 03/22/2023. MAMMOGRAPHY TECHNIQUE: 2D and 3D (tomosynthesis) digital mammographic views obtained, with additional images as needed for full coverage. Current study was also evaluated with a Computer Aided Detection (CAD) system. DENSITY C. The breasts are heterogeneously dense, which may obscure small masses. MAMMOGRAPHY FINDINGS Bilateral: No suspicious mass, asymmetry, microcalcification, or other abnormality seen. IMPRESSION: * No evidence of malignancy. RECOMMENDATIONS Bilateral * Annual screening mammography. OVERALL ASSESSMENT CATEGORY BI-RADS-1: Negative. The [employer] recommends annual screening mammography beginning at age 40 for women with average risk of breast cancer. ELECTRONICALLY SIGNED: Court Awad M.D. on 06/15/2025 at 04:14:58 PM PT Interpreting Station ID: [id number]
== END ==
LOC: MAMMO 08:01
PROVIDERS: PCP Student in an Organized Health Care Education/Training Program; Referring Provider Student in an Organized Health Care Education/Training Program; Visit Provider Student in an Organized Health Care Education/Training Program
DX: Z12.31 Encounter for screening mammogram for malignant neoplasm of breast (principal); R92.333 Mammographic heterogeneous density, bilateral breasts
CPT/HCPCS: 77063; 77067